=== PATIENT | male | born 1940 | race Caucasian/White ===

== ENCOUNTER 2024-11-26 15:31 | Inpatient (IN) ==
--- NOTE | 2024-11-26 15:42 | ED Triage Note ---
Date of Service November 26, 2024 Provider in Triage Author: Chano Watkins History of Present Illness This patient was briefly evaluated while in triage. An abbreviated physical exam was performed. This patient is a 84-year-old Male who presents to the ED with his daughter for evaluation of discoloration. The patient followed up with his PCP, who ordered lab work and imaging performed. They stated that he had an abnormal ultrasound today, concerning for biliary sludge. She reports that he had diarrhea last night, and is usually constipated. Patient is a [facility] patient. The patient currently denies any pain. Physical Exam CONSTITUTIONAL: Healthy and well nourished. Patient does not appear in any acute distress. Patient has some mild jaundice. HEENT: Normocephalic, atraumatic. Pupils equal, round and reactive. Conjunctive very pale. RESPIRATORY: Clear to auscultation bilaterally with no wheezing, crackles, rhonchi or stridor. CARDIOVASCULAR: Regular rate and rhythm with no murmurs, rubs or gallops. GASTROINTESTINAL: Bowel sounds present in all quadrants. Patient does not have any abdominal tenderness to palpation. MUSCULOSKELETAL: Full range of motion of all joints without discomfort. INTEGUMENTARY: No rash or other significant dermatologic conditions noted. HEMATOLOGIC: No ecchymosis or petechiae. PSYCHIATRIC: Positive affect. Initial orders for labs and / or imaging were placed and patient was placed in the waiting area until a bed is available. Please see further documentation for the full ED course.
[2024-11-26 16:18] LABS: Basophils # (auto) 0.09 K/uL (0.00-0.20); Basophils % (auto) 1.3 %; Eosinophils # (auto) 0.27 K/uL (0.00-0.50); Eosinophils % (auto) 3.9 %; Hematocrit (blood only) 22.4 % (42.0-52.0); Hemoglobin 7.6 g/dl (14.0-18.0); Immature Granulocytes # (auto) 0.04 K/uL (0.01-0.20); Immature Granulocytes % (auto) 0.6 %; Lymphocytes # (auto) 1.29 K/uL (1.20-3.40); Lymphocytes % (auto) 18.7 %; Mean Corpuscular Hemoglobin 30.2 pg (25.0-34.0); Mean Corpuscular Hgb Conc 33.9 g/dL (32.0-36.0); Mean Corpuscular Volume 88.9 fL (80.0-100.0); Mean Platelet Volume 11.4 fL (9.4-12.4); Monocytes % (auto) 10.2 %; Neutrophils % (auto) 65.3 %; Platelet Count 310 K/uL (130-400); RDW Coefficient of Variation 20.7 % (11.5-14.5); RDW Standard Deviation 65.7 fL (36.4-46.3); Red Blood Count 2.52 M/uL (4.70-6.10); White Blood Count 6.89 K/ul (4.8-10.8)
[2024-11-26 16:34] LABS: Alanine Aminotransferase 104 U/L (7-52); Albumin Globulin Ratio 0.6 (0.9-2); Albumin Level 2.8 gm/dl (3.4-5.0); Alkaline Phosphatase 1100 U/L (34-104); Anion Gap 9 (3-11); Aspartate Aminotransferase 348 U/L (13-39); Bilirubin,Total 10.6 mg/dl (0.2-1.0); Blood Urea Nitrogen 19 mg/dl (6-23); Calcium 7.7 mg/dl (8.6-10.3); Carbon Dioxide 20 mmol/L (21-32); Chloride 107 mmol/L (98-107); Globulin 4.8 gm/dl (2.5-4.0); Glucose 116 mg/dl (70-99(Fasting)); Lipase 55 U/L (11-82); Potassium 3.8 mmol/L (3.5-5.1); Sodium 136 mmol/L (136-145); Total Protein 7.6 gm/dl (6.0-8.3)
[2024-11-26 16:40] LABS: Anisocytosis Present; Target Cells 2+; Troponin I High Sensitivity 22.8 pg/ml (0-20)
[2024-11-26 16:42] LABS: INR 3.3 (0.9-1.1); Prothrombin Time 32.3 Seconds (9.0-12.0)
--- NOTE | 2024-11-26 16:42 | XRay Report ---
EXAM: Radiograph of the Chest 1 View INDICATION: Abdominal pain. TECHNIQUE: Frontal view of the chest. COMPARISON: No relevant prior studies available. FINDINGS: Lungs and pleural spaces: No consolidation or pulmonary edema. No pleural effusion or pneumothorax. Heart: Shape and configuration within normal limits allowing for technique. Mediastinum: Normal contour. Bones/joints: Degenerative changes noted throughout the spine and both shoulders. No lytic or blastic lesions noted. Soft tissues: No abnormality noted. No radiopaque foreign body noted. Upper abdomen: No abnormality noted. IMPRESSION: No acute cardiopulmonary disease. ACT 112: Negative or not required by law. Electronically signed by Alejandra Montesinos 11-26-2024 4:41 PM
[2024-11-26 16:54] LABS: Bilirubin Direct 6.7 mg/dl (0-0.2)
--- NOTE | 2024-11-26 17:12 | Electrocardiogram Report ---
Test Reason : Blood Pressure : */* mmHG Vent. Rate : 93 BPM Atrial Rate : * BPM P-R Int : * ms QRS Dur : 90 ms QT Int : 368 ms P-R-T Axes : * -15 80 degrees QTcB Int : 457 ms Atrial fibrillation Abnormal ECG Confirmed by Inocencio Colon ([id number]) on 11/26/2024 5:12:36 PM Referred By: Confirmed By: Inocencio Colon
[2024-11-26] MEDS: OPTIRAY 320 100ml IV ONE (17:44)
[2024-11-26] MEDS: SODIUM CHLORIDE 0.9% 1,000 ML IV ONE (17:56)
--- NOTE | 2024-11-26 18:08 | CT Scan Report ---
EXAM: CT Abdomen and Pelvis With Intravenous Contrast INDICATION: Jaundice. TECHNIQUE: Axial computed tomography images of the abdomen and pelvis with intravenous contrast. Sagittal and coronal reformatted images were created and reviewed. This CT exam was performed using one or more of the following dose reduction techniques: automated exposure control, adjustment of the mA and/or kV according to patient size, and/or use of iterative reconstruction technique. CONTRAST: 90ml of Optiray 320 was administered intravenously. COMPARISON: No relevant prior studies available. FINDINGS: Limitations: None. Lung bases: No abnormality noted. Pleural space: No visualized pleural effusion or pneumothorax. Heart: Mild cardiomegaly. Aortic valve prosthesis noted. Dense coronary calcification noted. No pericardial effusion. Mediastinum: No abnormality noted. ABDOMEN: Liver: Heterogeneous hypodensity with moderate intrahepatic biliary dilatation. No hepatic mass. Gallbladder and bile ducts: Small stones in the gallbladder. Contrast noted in the common hepatic duct. The common bile duct is slightly increased in density but normal size. No calcified stones. Pancreas: Homogeneous enhancement. No mass, inflammation or ductal dilation. Spleen: No significant abnormality noted. Adrenals: No significant abnormality noted. Kidneys and ureters: Simple bilateral renal cysts noted. No follow-up necessary. No stones or hydronephrosis. 3 x 6 mm stone noted at the right UPJ. No hydronephrosis. Stomach and bowel: Colonic diverticulosis without diverticulitis. No intestinal thickening or obstruction. PELVIS: Appendix: Well seen and appears normal. Bladder: There are stones in the urinary bladder the largest measuring 3.3 cm diameter. The bladder is mildly thickened and inflamed. Reproductive: No abnormalities noted. ABDOMEN and PELVIS: Intraperitoneal space: No free air. No significant fluid collection. Bones/joints: The bones are demineralized. There is acute severe compression fracture of L1 with height loss and retropulsion. Severe canal stenosis present. Diffuse degenerative changes present with grade 2 lumbosacral anterolisthesis. Soft tissues: No significant abnormality noted. Vasculature: Atherosclerotic calcification of the aorta and branches. No aneurysm. Lymph nodes: There is a heterogeneous peripherally calcified 3.5 x 3.2 x 6.0 cm long mass along the inferior margin of the atrophic left rectus muscle anterior to the left external iliac artery. IMPRESSION: 1. Common bile duct is not dilated but appears dense with cutoff at the hepatic duct level suggesting common bile duct obstruction. There is moderate intrahepatic biliary dilatation. 2. Cholelithiasis. 3. There is an irregular mass exophytic from or abutting the inferior aspect of the atrophic left rectus muscle situated anterior to the left external iliac artery. Diagnostic considerations include neoplastic mass or metastatic lymph node. Conceivably, an old rectus sheath hematoma could have this appearance. ACT 112: Negative or not required by law. Electronically signed by Alejandra Montesinos 11-26-2024 6:07 PM
[2024-11-26 18:32] LABS: Troponin I High Sensitivity 23.8 pg/ml (0-20)
[2024-11-26 19:30] LABS: Appearance Urine Cloudy (Clear); Bacteria Urine Automated None Seen (None Seen); Bilirubin Urine 3+ (Negative); Blood Urine 3+ (Negative); Cast Urine Automated 0-2 /lpf (0-2); Color Urine Dark Yellow; Glucose Urine UA Negative (Negative); Ketones Urine Negative (Negative); Leukocyte Esterase Urine Trace (Negative); Nitrite Urine Negative (Negative); Protein Urine Trace (Negative); RBC Urine Automated >20 /hpf (0-2); Specific Gravity Urine 1.037 (1.000-1.030); Urobilinogen Urine Negative (Negative); WBC Urine Automated 0-5 /hpf (0-5); pH Urine 5.5 (4.5-7.5)
--- NOTE | 2024-11-26 20:16 | History & Physical Report ---
Date of Service November 26, 2024 Assessment & Plan (1) Hypotension: Plan: Multifactorial: Hypovolemia from obstructive jaundice from cholelithiasis, possible mass lesion, UGIB secondary to hepatic coagulopathy/Xarelto Rx Rapid A-fib Acute on chronic anemia secondary to UGIB hx CAD status post coronary endarterectomy severe sp bioprosthetic AVR hyperlipidemia on statin Rx DM2 diet-controlled, well-controlled as of recent hemoglobin A1c of 6.2 last year Dementia as per records, patient mentating well PCU IVF Decrease maintenance beta-brie dose, digoxin for uncontrolled A-fib IV PPI IV vitamin K for coagulopathy secondary to liver disease Hold Xarelto and aspirin for now given GI bleed Transfuse PRBC to maintain hemoglobin of at least 8 Hold statin given abnormal LFTs C transfer once bed available (Patient kindly accepted for transfer by Dr. Santos of hospitalist service. Transfer paperwork already completed at the ER.) N.p.o. after midnight in anticipation of procedure DVT prophylaxis. SCDs re: GI bleed Full code Patient daughter requesting updates providers. Ms. Aileen Mcdonnell, contact #[phone]. Text document was generated using [employer] voice recognition software. It may contain grammatical or spelling errors. Kindly contact undersigned for clarification of any documentation item in question. History of Present Illness Chief Complaint: Abnormal labs/ultrasound Primary Care Provider: Cecil Tai MD History obtained from patient and records. Medical history significant for CAD status post coronary endarterectomy, A-fib on Xarelto, severe sp bioprosthetic AVR, hypertension, hyperlipidemia, DM2 diet-controlled, chronic anemia (baseline hemoglobin of 12), dementia. Patient skin color noted to be off by family the last few weeks. Somewhat yellow to orange. No abdominal pain, no fever, no chills. Poor appetite. Denies headache, chest pain, SOB. Loose stools nonbloody as per patient. PCP requested outpatient blood work. Abnormal labs noted. Hemoglobin 9.1, ALT 125, AST 273, alk phos 11/04/2004, total bilirubin 7.3 Liver ultrasound showed Intraluminal gallbladder sludge a portion of which is suspect to be tumefactive. There is proximal intrahepatic biliary dilatation and extrahepatic biliary dilatation. Consider follow-up MRCP imaging if clinically appropriate. Patient directed to ER for evaluation. Lowest SBP of 80s documented at the ER. Patient accepted for transfer by [facility] hospitalist service pending bed availability. Medical History as above Surgical History : Bioprosthetic AVR/bypass, coronary endarterectomy, cataract surgery, hernia surgery Family History : Esophageal cancer Personal/Social history : Non-smoker, no EtOH intake, retired hair stylist Allergies Allergy/AdvReac Type Severity Reaction Status Date / Time iodine Allergy Mild Blister - Verified 11/26/24 19:12 REMOTE HX Penicillins Allergy Unknown Unknown - Verified 11/26/24 19:12 REMOTE HX Home Medications Medication Instructions Recorded Confirmed Type rivaroxaban 20 mg tablet 20 mg PO DAILY #30 tabs 07/22/19 11/26/24 History atorvastatin 10 mg tablet 10 mg PO QPM #90 tabs 07/20/24 11/26/24 Rx metoprolol succinate 50 mg 50 mg PO BID #180 tabs 08/11/24 11/26/24 Rx tablet,extended release 24 hr aspirin 81 mg tablet,delayed 81 mg PO DAILY 11/26/24 11/26/24 History release Past Med/Surg History Problem List (Updated 11/27/24 @ 00:54 by Marlys Haider MD) Abnormal transaminases (Acute) Malignant obstructive jaundice (Acute) Common bile duct (CBD) obstruction (Acute) Hypotension Chronic anticoagulation Atrial fibrillation (Acute) UTI (urinary tract infection) History of aortic valve replacement 11 YR AGO CAD (coronary artery disease) History of coronary artery bypass graft Encounter for pre-operative examination Medical History Atrial fibrillation Arthritis Borderline diabetes Chronic cough Hyperlipidemia HTN (hypertension) Surgical History History of cataract surgery History of hernia surgery Family History Brother Family history of esophageal cancer Brother Family history of esophageal cancer Social History Smoking Status: Never smoker Do You Dip or Chew Tobacco: No; Hx Alcohol Use: No Hx Substance Use: No Preferred Language: Greek Communication Ability: Effective Master [place] Required: No Beliefs That Will Affect Care: None Current Living Situation: Family Current Living Situation Comment: , GRANDAUGHTRISH AND SON Other Information That Helps Us Care for You: No Feels Safe at Home: Yes Safety Concerns: Feels Safe At This Time Assistive Devices: Walker Review of Systems Review of Systems: As per HPI, all other systems reviewed and negative Physical Exam Physical Exam: GENERAL: Comfortable, pleasant, slightly hard of hearing, no respiratory distress SKIN: Jaundiced, warm HEENT: Pale palpebral conjunctivae, no ptosis, dry buccal mucosa NECK : Supple, no tenderness CHEST : CTA, no tenderness HEART : Irregular, no obvious murmurs ABDOMEN: Some distention, nontender RECTAL : Intact sphincter, dark stool (FOBT positive) EXTREMITIES : No LE swelling/tenderness, no other conspicuous deformities noted NEUROLOGIC : Coherent, no facial asymmetry, slightly hard of hearing, no other gross focality Results & Data Results & Data Vital Signs (Past 12 Hours) Vital Signs Temp Pulse Pulse Resp BP BP Pulse Ox 11/26/24 19:00 112 H 18 120/75 100 11/26/24 17:05 78 16 96 11/26/24 17:05 91 H 16 87/66 L 97 11/26/24 15:37 36.9 C 98 H 18 105/70 98 O2 Del Method 11/26/24 19:00 Room Air 11/26/24 17:05 Room Air 11/26/24 17:05 Room Air 11/26/24 15:37 Room Air Laboratory Results Laboratory Results WBC 6.89 K/ul (4.8-10.8) 11/26/24 15:56 RBC 2.52 M/uL (4.70-6.10) L 11/26/24 15:56 Hgb 7.6 g/dl (14.0-18.0) L 11/26/24 15:56 Hct 22.4 % (42.0-52.0) L 11/26/24 15:56 MCV 88.9 fL (80.0-100.0) 11/26/24 15:56 MCH 30.2 pg (25.0-34.0) 11/26/24 15:56 MCHC 33.9 g/dL (32.0-36.0) 11/26/24 15:56 RDW Std Deviation 65.7 fL (36.4-46.3) H 11/26/24 15:56 RDW Coeff of Colt 20.7 % (11.5-14.5) H 11/26/24 15:56 Plt Count 310 K/uL (130-400) 11/26/24 15:56 MPV 11.4 fL (9.4-12.4) 11/26/24 15:56 Immature Gran % (Auto) 0.6 % 11/26/24 15:56 Neut % (Auto) 65.3 % 11/26/24 15:56 Lymph % (Auto) 18.7 % 11/26/24 15:56 Chambers % (Auto) 10.2 % 11/26/24 15:56 Eos % (Auto) 3.9 % 11/26/24 15:56 Baso % (Auto) 1.3 % 11/26/24 15:56 Neut # (Auto) 4.50 K/uL (1.40-6.50) 11/26/24 15:56 Lymph # (Auto) 1.29 K/uL (1.20-3.40) 11/26/24 15:56 Chambers # (Auto) 0.70 K/uL (0.11-0.59) H 11/26/24 15:56 Eos # (Auto) 0.27 K/uL (0.00-0.50) 11/26/24 15:56 Baso # (Auto) 0.09 K/uL (0.00-0.20) 11/26/24 15:56 Immature Gran # (Auto) 0.04 K/uL (0.01-0.20) 11/26/24 15:56 Anisocytosis Present 11/26/24 15:56 Target Cells 2+ 11/26/24 15:56 PT 32.3 Seconds (9.0-12.0) H 11/26/24 15:56 INR 3.3 (0.9-1.1) H 11/26/24 15:56 Sodium 136 mmol/L (136-145) 11/26/24 15:56 Potassium 3.8 mmol/L (3.5-5.1) 11/26/24 15:56 Chloride 107 mmol/L (98-107) 11/26/24 15:56 Carbon Dioxide 20 mmol/L (21-32) L 11/26/24 15:56 Anion Gap 9 (3-11) 11/26/24 15:56 BUN 19 mg/dl (6-23) 11/26/24 15:56 Creatinine 1.19 mg/dl (0.6-1.4) 11/26/24 15:56 Est Cr Clr Drug Dosing Not Reportable 11/26/24 15:56 eGFR 59.86 11/26/24 15:56 BUN/Creatinine Ratio 16.0 (10-20) 11/26/24 15:56 Glucose 116 mg/dl (70-99(Fasting)) H 11/26/24 15:56 Calcium 7.7 mg/dl (8.6-10.3) L 11/26/24 15:56 Total Bilirubin 10.6 mg/dl (0.2-1.0) H 11/26/24 15:56 Direct Bilirubin 6.7 mg/dl (0-0.2) H 11/26/24 15:56 AST 348 U/L (13-39) H 11/26/24 15:56 ALT 104 U/L (7-52) H 11/26/24 15:56 Alkaline Phosphatase 1100 U/L (34-104) H 11/26/24 15:56 Troponin I High Sens 23.8 pg/ml (0-20) H 11/26/24 17:57 Total Protein 7.6 gm/dl (6.0-8.3) 11/26/24 15:56 Albumin 2.8 gm/dl (3.4-5.0) L 11/26/24 15:56 Globulin 4.8 gm/dl (2.5-4.0) H 11/26/24 15:56 Albumin/Globulin Ratio 0.6 (0.9-2) L 11/26/24 15:56 Lipase 55 U/L (11-82) 11/26/24 15:56 Urine Color Dark Yellow 11/26/24 19:15 Urine Appearance Cloudy (Clear) A 11/26/24 19:15 Urine pH 5.5 (4.5-7.5) 11/26/24 19:15 Ur Specific [place]crombie 1.037 (1.000-1.030) H 11/26/24 19:15 Urine Protein Trace (Negative) H 11/26/24 19:15 Urine Glucose (UA) Negative (Negative) 11/26/24 19:15 Urine Ketones Negative (Negative) 11/26/24 19:15 Urine Blood 3+ (Negative) H 11/26/24 19:15 Urine Nitrite Negative (Negative) 11/26/24 19:15 Urine Bilirubin 3+ (Negative) H 11/26/24 19:15 Urine Urobilinogen Negative (Negative) 11/26/24 19:15 Ur Leukocyte Esterase Trace (Negative) H 11/26/24 19:15 Urine WBC (Auto) 0-5 /hpf (0-5) 11/26/24 19:15 Urine RBC (Auto) >20 /hpf (0-2) H 11/26/24 19:15 U Hyaline Cast (Auto) 0-2 /lpf (0-2) 11/26/24 19:15 U Epithel Cells (Auto) 6-10 /hpf (0-2) H 11/26/24 19:15 Urine Bacteria (Auto) None Seen (None Seen) 11/26/24 19:15 Impressions Chest X-Ray 11/26/24 15:45 EXAM: Radiograph of the Chest 1 View INDICATION: Abdominal pain. TECHNIQUE: Frontal view of the chest. COMPARISON: No relevant prior studies available. FINDINGS: Lungs and pleural spaces: No consolidation or pulmonary edema. No pleural effusion or pneumothorax. Heart: Shape and configuration within normal limits allowing for technique. Mediastinum: Normal contour. Bones/joints: Degenerative changes noted throughout the spine and both shoulders. No lytic or blastic lesions noted. Soft tissues: No abnormality noted. No radiopaque foreign body noted. Upper abdomen: No abnormality noted. IMPRESSION: No acute cardiopulmonary disease. ACT 112: Negative or not required by law. Electronically signed by Alejandra Montesinos 11-26-2024 4:41 PM Abdomen/Pelvis CT 11/26/24 17:12 EXAM: CT Abdomen and Pelvis With Intravenous Contrast INDICATION: Jaundice. TECHNIQUE: Axial computed tomography images of the abdomen and pelvis with intravenous contrast. Sagittal and coronal reformatted images were created and reviewed. This CT exam was performed using one or more of the following dose reduction techniques: automated exposure control, adjustment of the mA and/or kV according to patient size, and/or use of iterative reconstruction technique. CONTRAST: 90ml of Optiray 320 was administered intravenously. COMPARISON: No relevant prior studies available. FINDINGS: Limitations: None. Lung bases: No abnormality noted. Pleural space: No visualized pleural effusion or pneumothorax. Heart: Mild cardiomegaly. Aortic valve prosthesis noted. Dense coronary calcification noted. No pericardial effusion. Mediastinum: No abnormality noted. ABDOMEN: Liver: Heterogeneous hypodensity with moderate intrahepatic biliary dilatation. No hepatic mass. Gallbladder and bile ducts: Small stones in the gallbladder. Contrast noted in the common hepatic duct. The common bile duct is slightly increased in density but normal size. No calcified stones. Pancreas: Homogeneous enhancement. No mass, inflammation or ductal dilation. Spleen: No significant abnormality noted. Adrenals: No significant abnormality noted. Kidneys and ureters: Simple bilateral renal cysts noted. No follow-up necessary. No stones or hydronephrosis. 3 x 6 mm stone noted at the right UPJ. No hydronephrosis. Stomach and bowel: Colonic diverticulosis without diverticulitis. No intestinal thickening or obstruction. PELVIS: Appendix: Well seen and appears normal. Bladder: There are stones in the urinary bladder the largest measuring 3.3 cm diameter. The bladder is mildly thickened and inflamed. Reproductive: No abnormalities noted. ABDOMEN and PELVIS: Intraperitoneal space: No free air. No significant fluid collection. Bones/joints: The bones are demineralized. There is acute severe compression fracture of L1 with height loss and retropulsion. Severe canal stenosis present. Diffuse degenerative changes present with grade 2 lumbosacral anterolisthesis. Soft tissues: No significant abnormality noted. Vasculature: Atherosclerotic calcification of the aorta and branches. No aneurysm. Lymph nodes: There is a heterogeneous peripherally calcified 3.5 x 3.2 x 6.0 cm long mass along the inferior margin of the atrophic left rectus muscle anterior to the left external iliac artery. IMPRESSION: 1. Common bile duct is not dilated but appears dense with cutoff at the hepatic duct level suggesting common bile duct obstruction. There is moderate intrahepatic biliary dilatation. 2. Cholelithiasis. 3. There is an irregular mass exophytic from or abutting the inferior aspect of the atrophic left rectus muscle situated anterior to the left external iliac artery. Diagnostic considerations include neoplastic mass or metastatic lymph node. Conceivably, an old rectus sheath hematoma could have this appearance. ACT 112: Negative or not required by law. Electronically signed by Alejandra Montesinos 11-26-2024 6:07 PM Diagnostic Findings EKG as per my interpretation :Rate 90, A-fib, normal axis, T wave flattening lateral leads
--- NOTE | 2024-11-26 20:16 | Emergency Department Note ---
Impression & Plan Common bile duct (CBD) obstruction, Atrial fibrillation, Malignant obstructive jaundice, Abnormal transaminases ED Provider Note NAME: SUE PETERS AGE: 84 SEX: M : 1940 ARRIVES VIA: Walk-In INFORMANT: Patient, ED PROVIDER(S): Marlys Haider MD CHIEF COMPLAINT: Jaundice HPI: This is an 84-year-old male presented for jaundice. Patient with the daughter states that he has been becoming more yellow over the course of the last 1 month. He has had some weight loss, possibly 30 pounds in the past 1 to 2 months. He was seen by his outpatient physician and ordered for blood work. They noted that he was jaundiced. Ultrasound also performed today and is advised to the ER after this. Reports some diarrhea last night. Otherwise no nausea or vomiting. No pain with this. No pain in the belly. The daughter states that he has been sleeping more often. Otherwise no chest pain or shortness of breath, no fevers ROS: See above HPI for pertinent positives & negatives. A total of 10 systems reviewed and were otherwise negative. PAST MEDICAL HISTORY: See Below PAST SURGICAL HISTORY: See Below FAMILY HISTORY: See Below SOCIAL HISTORY: See Below HOME MEDICATIONS: See Below ALLERGIES: See Below VITALS: See Below PHYSICAL EXAMINATION: General: resting comfortably in no acute distress Head: Normocephalic and atraumatic Eyes: Normal inspection, extraocular muscles intact, scleral icterus Ear, nose, throat: Normal external exam Neck: Normal range of motion Respiratory: lungs clear to auscultation bilaterally Cardiovascular: Regular rate/rhythm, no murmur GI: soft, nontender, no guarding or rebound Extremities: nontender, moves all extremities Neuro: The patient awake and alert, appropriately conversive, no focal deficits, symmetric faces Skin: Warm jaundiced MEDICAL DECISION MAKING: This is a an 84-year male present for jaundice. Patient is currently jaundice at this time with fairly yellow pigmented skin. He has clear icterus. With patient's weight loss, fatigue, and painless jaundice, consider possible obstructive pathology such as cancer. Must consider cholecystitis, cholangitis, choledocholithiasis. -Blood work significant abnormal. Patient is anemic to 7.3. Otherwise no leukocytosis. INR 3.3. Patient is not on Coumadin or warfarin but he is on Xarelto. Electrolytes within normal limits Aside from slight hypocalcemia. Creatinine stable. -Chest Xray independently interpreted by me showing no pneumothorax, focal opacity, or pleural effusions. Patient significant normalities in his LFTs. He has transaminitis 348/104, AST/ALT respectively. Total bilirubin 10.6, direct bilirubin 6.7. Alk phos 1100 -Ultrasound in the outpatient setting does reveal intraluminal gallbladder sludge suspicious of tumefactive. Otherwise there is proximal intrahepatic biliary dilation and extrapedicular dilation. -CT of the abdomen/pelvis to be ordered assessing for any common bile duct dilation, stone, pancreatic mass -CT does reveal the common bile duct is not dilated. There is suggestion of common bile duct obstruction with moderate intrahepatic bile dilation. There is cholelithiasis. Otherwise there is an irregular mass exophytic from or abutting the inferior aspect of the atrophic left rectus muscle. This could be a metastatic lymph node versus neoplastic mass. -Discussed care with Dr. Tim, GI physician who states patient will require transfer as we do not do metallic stent and there is no ERCP coverage -Discussed care with [facility] in [place], discussed with hospitalist physician for admission. Accepted the patient. There is no current bed, will likely be morning or afternoon for bed -Patient care discussed with Dr. Earl for hospitalist consultation while patient awaits transfer -Family updated at bedside and acceptable for transfer Differential diagnosis: Cholelithiasis, cholangitis, choledocholithiasis, pancreatic cancer, obstructive jaundice, liver failure Independent History obtained from: Daughter Diagnostics interpreted by me: ECG: ECG independently interpreted by me with atrial fibrillation with a rate of 93, normal QRS, normal QTc, no ST segment elevations consistent with STEMI criteria Cardiac Monitoring: An order was placed for continuous cardiac monitoring. The monitor shows a rate of 93 with sinus rhythm. Critical Care Note: I have personally spent 45 minutes of critical care time in the direct management of this patient. This includes bedside care, interpretation of diagnostic studies, and testing, discussion with consultants, patient, and family members, and other required patient management activities. This 45 minutes is in excess of all separately billable procedures. Past Med/Surg History Problem List (Updated 11/27/24 @ 00:54 by Marlys Haider MD) Abnormal transaminases (Acute) Malignant obstructive jaundice (Acute) Common bile duct (CBD) obstruction (Acute) Hypotension Chronic anticoagulation Atrial fibrillation (Acute) UTI (urinary tract infection) History of aortic valve replacement 11 YR AGO CAD (coronary artery disease) History of coronary artery bypass graft Encounter for pre-operative examination Medical History Atrial fibrillation Arthritis Borderline diabetes Chronic cough Hyperlipidemia HTN (hypertension) Surgical History History of cataract surgery History of hernia surgery Family History Brother Family history of esophageal cancer Brother Family history of esophageal cancer Social History Smoking Status: Never smoker Do You Dip or Chew Tobacco: No; Hx Alcohol Use: No Hx Substance Use: No Preferred Language: Mauritian Communication Ability: Effective Hot Tar Roofer Required: No Beliefs That Will Affect Care: None Current Living Situation: Family Current Living Situation Comment: , GRANDAUGHTER AND SON Other Information That Helps Us Care for You: No Feels Safe at Home: Yes Safety Concerns: Feels Safe At This Time Assistive Devices: Walker Allergies Allergies Allergy/AdvReac Type Severity Reaction Status Date / Time iodine Allergy Mild Blister - Verified 11/26/24 19:12 REMOTE HX Penicillins Allergy Unknown Unknown - Verified 11/26/24 19:12 REMOTE HX Home Meds Home Medications Medication Instructions Recorded Confirmed rivaroxaban 20 mg tablet 20 mg PO DAILY #30 tabs 07/22/19 11/26/24 aspirin 81 mg tablet,delayed 81 mg PO DAILY 11/26/24 11/26/24 release Previous Rx's Medication Instructions Recorded atorvastatin 10 mg tablet 10 mg PO QPM #90 tabs 07/20/24 metoprolol succinate 50 mg 50 mg PO BID #180 tabs 08/11/24 tablet,extended release 24 hr Results & Data (ED) Vital Signs Vital Signs - 24 hr 11/26/24 15:37 11/26/24 17:05 11/26/24 17:05 Temperature 36.9 C Temperature Source Oral Pulse Rate 98 H 78 Pulse Rate [Finger] 91 H Pulse Rhythm [Finger] Regular Pulse Strength [Finger] Normal Respiratory Rate 18 16 16 Respiratory Effort / Characteristics Non-Labored Spontaneous Respiratory Depth Normal Respiratory Pattern Blood Pressure 105/70 Blood Pressure [Right Arm] 87/66 L Blood Pressure Mean 81 Blood Pressure Mean [Right Arm] 73 Blood Pressure Position [Right Arm] Lying Pulse Oximetry 98 97 96 Oxygen Delivery Method Room Air Room Air Room Air Sepsis New/Unexplained Change in Mental Status No Sepsis Action Taken by Nursing No Action Required 11/26/24 19:00 11/26/24 20:22 Temperature Temperature Source Pulse Rate 83 Pulse Rate [Finger] 112 H Pulse Rhythm [Finger] Regular Pulse Strength [Finger] Normal Respiratory Rate 18 Respiratory Effort / Characteristics Non-Labored Spontaneous Respiratory Depth Normal Respiratory Pattern Regular Blood Pressure Blood Pressure [Right Arm] 120/75 Blood Pressure Mean Blood Pressure Mean [Right Arm] 90 Blood Pressure Position [Right Arm] Sitting Pulse Oximetry 100 Oxygen Delivery Method Room Air Sepsis New/Unexplained Change in Mental Status Sepsis Action Taken by Nursing Laboratory Data 11/26/24 21:05 11/26/24 15:56 Lab Results 11/26/24 11/26/24 11/26/24 Range/Units 15:56 17:57 19:15 WBC 6.89 (4.8-10.8) K/ul RBC 2.52 L (4.70-6.10) M/uL Hgb 7.6 L (14.0-18.0) g/dl Hct 22.4 L (42.0-52.0) % MCV 88.9 (80.0-100.0) fL MCH 30.2 (25.0-34.0) pg MCHC 33.9 (32.0-36.0) g/dL RDW Std Deviation 65.7 H (36.4-46.3) fL RDW Coeff of [place] 20.7 H (11.5-14.5) % Plt Count 310 (130-400) K/uL MPV 11.4 (9.4-12.4) fL Immature Gran % (Auto) 0.6 % Neut % (Auto) 65.3 % Lymph % (Auto) 18.7 % [place] % (Auto) 10.2 % Eos % (Auto) 3.9 % Baso % (Auto) 1.3 % Neut # (Auto) 4.50 (1.40-6.50) K/uL Lymph # (Auto) 1.29 (1.20-3.40) K/uL [place] # (Auto) 0.70 H (0.11-0.59) K/uL Eos # (Auto) 0.27 (0.00-0.50) K/uL Baso # (Auto) 0.09 (0.00-0.20) K/uL Immature Gran # (Auto) 0.04 (0.01-0.20) K/uL Anisocytosis Present Target Cells 2+ PT 32.3 H (9.0-12.0) Seconds INR 3.3 H (0.9-1.1) Sodium 136 (136-145) mmol/L Potassium 3.8 (3.5-5.1) mmol/L Chloride 107 (98-107) mmol/L Carbon Dioxide 20 L (21-32) mmol/L Anion Gap 9 (3-11) BUN 19 (6-23) mg/dl Creatinine 1.19 (0.6-1.4) mg/dl Est Cr Clr Drug Dosing Not Reportable eGFR 59.86 BUN/Creatinine Ratio 16.0 (10-20) Glucose 116 H (70-99(Fasting)) mg/dl Calcium 7.7 L (8.6-10.3) mg/dl Magnesium 1.6 L (1.7-2.4) mg/dl Total Bilirubin 10.6 H (0.2-1.0) mg/dl Direct Bilirubin 6.7 H (0-0.2) mg/dl AST 348 H (13-39) U/L ALT 104 H (7-52) U/L Alkaline Phosphatase 1100 H (34-104) U/L Troponin I High Sens 22.8 H 23.8 H (0-20) pg/ml Total Protein 7.6 (6.0-8.3) gm/dl Albumin 2.8 L (3.4-5.0) gm/dl Globulin 4.8 H (2.5-4.0) gm/dl Albumin/Globulin Ratio 0.6 L (0.9-2) Lipase 55 (11-82) U/L TSH 1.806 (0.300-4.500) uIu/ml Urine Color Dark Yellow Urine Appearance Cloudy A (Clear) Urine pH 5.5 (4.5-7.5) Ur Specific [place] 1.037 H (1.000-1.030) Urine Protein Trace H (Negative) Urine Glucose (UA) Negative (Negative) Urine Ketones Negative (Negative) Urine Blood 3+ H (Negative) Urine Nitrite Negative (Negative) Urine Bilirubin 3+ H (Negative) Urine Urobilinogen Negative (Negative) Ur Leukocyte Esterase Trace H (Negative) Urine WBC (Auto) 0-5 (0-5) /hpf Urine RBC (Auto) >20 H (0-2) /hpf U Hyaline Cast (Auto) 0-2 (0-2) /lpf U Epithel Cells (Auto) 6-10 H (0-2) /hpf Urine Bacteria (Auto) None Seen (None Seen) Administered Medications Potassium Chloride/Sodium Chloride (Normal Saline W/20 Meq Kcl) 20 meq in 1,000 mls @ 75 mls/hr IV .[id number] ONE Stop: 11/27/24 09:34 Last Admin: 11/26/24 20:39 Dose: 75 mls/hr Documented By: JOSE Discontinued Medications Sodium Chloride (Nss) 1,000 mls @ 999 mls/hr IV .[id number] ONE Stop: 11/26/24 18:12 Last Infusion: 11/26/24 19:18 Dose: Infused Documented By: Admin: 11/26/24 17:56 Dose: 999 mls/hr Documented By: TANNER Phytonadione 10 mg/ Dextrose 51 mls @ 102 mls/hr IV ONE ONE Stop: 11/26/24 20:44 Last Infusion: 11/26/24 21:29 Dose: Infused Documented By: Admin: 11/26/24 20:39 Dose: 102 mls/hr Documented By: JOSE Pantoprazole Sodium 80 mg/ (Dextrose) 120 mls @ 480 mls/hr IV ONE STA Stop: 11/26/24 21:20 Last Infusion: 11/26/24 22:59 Dose: Infused Documented By: Admin: 11/26/24 22:38 Dose: 480 mls/hr Documented By: JOSE Magnesium Sulfate/Dextrose (Magnesium Sulfate / D5w) 1 gm in 100 mls @ 50 mls/hr IV ONE ONE Stop: 11/26/24 23:29 Last Infusion: 11/27/24 00:07 Dose: Infused Documented By: Admin: 11/26/24 21:29 Dose: 50 mls/hr Documented By: KAF Ioversol (Optiray 320 100ml) 90 ml IV ONCE ONE Stop: 11/26/24 17:45 Last Admin: 11/26/24 17:44 Dose: 90 ml Documented By: GRACE Metoprolol Succinate (Metoprolol Succ 50mg Ext Rel Tab) 50 mg PO NOW STA Stop: 11/26/24 20:08 Last Admin: 11/26/24 20:48 Dose: Not Given Documented By: JOSE Metoprolol Succinate (Metoprolol Succ 25mg Ext Rel Tab) 25 mg PO NOW STA Stop: 11/26/24 23:55 Last Admin: 11/27/24 00:10 Dose: 25 mg Documented By: MIKI Imaging Data Radiologist's Impression: Chest X-Ray 11/26/24 15:45 EXAM: Radiograph of the Chest 1 View INDICATION: Abdominal pain. TECHNIQUE: Frontal view of the chest. COMPARISON: No relevant prior studies available. FINDINGS: Lungs and pleural spaces: No consolidation or pulmonary edema. No pleural effusion or pneumothorax. Heart: Shape and configuration within normal limits allowing for technique. Mediastinum: Normal contour. Bones/joints: Degenerative changes noted throughout the spine and both shoulders. No lytic or blastic lesions noted. Soft tissues: No abnormality noted. No radiopaque foreign body noted. Upper abdomen: No abnormality noted. IMPRESSION: No acute cardiopulmonary disease. ACT 112: Negative or not required by law. Electronically signed by Alejandra Montesinos 11-26-2024 4:41 PM Abdomen/Pelvis CT 11/26/24 17:12 EXAM: CT Abdomen and Pelvis With Intravenous Contrast INDICATION: Jaundice. TECHNIQUE: Axial computed tomography images of the abdomen and pelvis with intravenous contrast. Sagittal and coronal reformatted images were created and reviewed. This CT exam was performed using one or more of the following dose reduction techniques: automated exposure control, adjustment of the mA and/or kV according to patient size, and/or use of iterative reconstruction technique. CONTRAST: 90ml of Optiray 320 was administered intravenously. COMPARISON: No relevant prior studies available. FINDINGS: Limitations: None. Lung bases: No abnormality noted. Pleural space: No visualized pleural effusion or pneumothorax. Heart: Mild cardiomegaly. Aortic valve prosthesis noted. Dense coronary calcification noted. No pericardial effusion. Mediastinum: No abnormality noted. ABDOMEN: Liver: Heterogeneous hypodensity with moderate intrahepatic biliary dilatation. No hepatic mass. Gallbladder and bile ducts: Small stones in the gallbladder. Contrast noted in the common hepatic duct. The common bile duct is slightly increased in density but normal size. No calcified stones. Pancreas: Homogeneous enhancement. No mass, inflammation or ductal dilation. Spleen: No significant abnormality noted. Adrenals: No significant abnormality noted. Kidneys and ureters: Simple bilateral renal cysts noted. No follow-up necessary. No stones or hydronephrosis. 3 x 6 mm stone noted at the right UPJ. No hydronephrosis. Stomach and bowel: Colonic diverticulosis without diverticulitis. No intestinal thickening or obstruction. PELVIS: Appendix: Well seen and appears normal. Bladder: There are stones in the urinary bladder the largest measuring 3.3 cm diameter. The bladder is mildly thickened and inflamed. Reproductive: No abnormalities noted. ABDOMEN and PELVIS: Intraperitoneal space: No free air. No significant fluid collection. Bones/joints: The bones are demineralized. There is acute severe compression fracture of L1 with height loss and retropulsion. Severe canal stenosis present. Diffuse degenerative changes present with grade 2 lumbosacral anterolisthesis. Soft tissues: No significant abnormality noted. Vasculature: Atherosclerotic calcification of the aorta and branches. No aneurysm. Lymph nodes: There is a heterogeneous peripherally calcified 3.5 x 3.2 x 6.0 cm long mass along the inferior margin of the atrophic left rectus muscle anterior to the left external iliac artery. IMPRESSION: 1. Common bile duct is not dilated but appears dense with cutoff at the hepatic duct level suggesting common bile duct obstruction. There is moderate intrahepatic biliary dilatation. 2. Cholelithiasis. 3. There is an irregular mass exophytic from or abutting the inferior aspect of the atrophic left rectus muscle situated anterior to the left external iliac artery. Diagnostic considerations include neoplastic mass or metastatic lymph node. Conceivably, an old rectus sheath hematoma could have this appearance. ACT 112: Negative or not required by law. Electronically signed by Alejandra Montesinos 11-26-2024 6:07 PM Discharge Plan Visit Data Chief Complaint: Abnormal Labs/Diagnostic Testing Stated Complaint: ABN LABS ED Provider: Marlys Haider Discharge Problem: Common bile duct (CBD) obstruction, Atrial fibrillation, Malignant obstructive jaundice, Abnormal transaminases Patient Disposition: Admitted As Inpatient Discharge Instructions Interventions: ED Discharge Assessment Last Done: 11/26/24 21:48
[2024-11-26 20:21] LABS: Magnesium 1.6 mg/dl (1.7-2.4)
[2024-11-26] MEDS: PHYTONADIONE 10 MG in DEXTROSE 5% 50 ML IV ONE (20:39)
[2024-11-26] MEDS: NSS + 20MEQ KCL 20 MEQ/1,000 ML BAG IV ONE (20:39)
[2024-11-26] MEDS: METOPROLOL SUCC 50MG EXT REL TAB PO STA (20:48)
[2024-11-26 20:59] LABS: Thyroid Stimulating Hormone 1.806 uIu/ml (0.300-4.500)
[2024-11-26] MEDS ORDERED: ACETAMINOPHEN 500 MG TAB PO PRN (21:03)
[2024-11-26] MEDS ORDERED: traMADol HCL 50 MG TABLET PO PRN (21:05)
[2024-11-26] MEDS ORDERED: PROMETHAZINE 6.25 MG/50.25 ML BAG IV PRN (21:05)
[2024-11-26] MEDS: MAGNESIUM SULFATE / D5W 1 GM/100 ML BAG IV ONE (21:29)
[2024-11-26 21:50] LABS: Hemoglobin 7.3 g/dl (14.0-18.0)
[2024-11-26] MEDS ORDERED: SODIUM CHLORIDE 0.9% 50 ML IV PRN (21:56)
[2024-11-26] MEDS ORDERED: SODIUM CHLORIDE 0.9% 100 ML IV PRN (21:56)
[2024-11-26] MEDS ORDERED: GLUCAGON FOR INJ 1 MG VIAL SQ PRN (22:05)
[2024-11-26] MEDS ORDERED: DEXTROSE 50% 50 ML SYRINGE IV PRN (22:05)
[2024-11-26] MEDS ORDERED: GLUCOSE 40% GEL 15 GM TUBE PO PRN (22:05)
[2024-11-26] MEDS ORDERED: GLUCOSE 10 TAB/TUBE PO PRN (22:05)
[2024-11-26] MEDS: PANTOprazole 80 MG in DEXTROSE 5% 100 ML IV STA (22:17)
[2024-11-27] MEDS: METOPROLOL SUCC 25MG EXT REL TAB PO STA (00:10)
[2024-11-27] MEDS: MAGNESIUM SULFATE / D5W 1 GM/100 ML BAG IV ONE ×2 (02:36→21:26)
--- OUTSIDE RECORDS SUMMARY | 2024-11-27 03:12 | External Medical Summary | Summary of Care ---
Author Name Unknown Organization [facility] Address [address] [place] [address] Phone [phone] Care Team Providers Care Biomedical Repair Technician Name Role Phone Cecil Tai MD Primary Care Provider [phone] Reason for Visit * Reason Onset Date Comments Test Results 11/17/2024 Encounter Details Date Type Department Care Team (Late st Contact Info) Description 11/17/2024 Telephone [facility] [address] [place] [id number] Cecil Tai MD [address] [facility] [place] [id number] Test Results Allergies Active Allergy Reactions Criticality Noted Date Comments Iodine Rash Low 04/16/2023 Lisinopril Cough 04/03/2018 Penicillins 06/01/2007 Took years ago, reaction, but not sure what happened documented as of this encounter (statuses as of 11/23/2024) Medications ASPIRIN 81 MG PO CHEW one chewable by mouth daily 34 5 7 Active atorvaSTATin (LIPITOR) 10 MG Tablet Take 1 Tab by mouth daily. 90 Tab 3 7 Active metoprolol succinate XL (TOPROL XL) 50 MG TB24 Take 1 Tablet by mouth in the morning and 1 Tablet before bedtime. 8 Active rivaroxaban (XARELTO) 20 MG Tablet Take 1 Tablet by mouth daily with dinner. Active B-12 500 MCG Oral Tablet Take by mouth. Act jesus Triamcinolone Acetonide 0.1 % External Cream (Aristocort)Marjorie cations:Dermatit is Apply topically to affected area 2 times a day. To affected area. 60 g 1 3 Active Additional Information Patient not taking.Reported on 10/08/2024 levoFLOXacin 500 MG Oral Tablet (Levaquin)Indica tions:Urinary tract infection with hematuria, site unspecified Take 1 Tablet by mouth in the morning. until gone.. 10 Tablet 4 Active Sulfamethoxazole -Trimethoprim 800-160 MG Oral Tablet (Bactrim DS)Indications:U rge incontinence of urine,Urinary frequency Take 1 Tablet by mouth in the morning and 1 Tablet before bedtime. Until gone.. 20 Tablet 4 Active documented as of this encounter (statuses as of 11/23/2024) Active Problems Problem Noted Date Diagnosed Date Pure hypercholesterolemia, unspecified 3 Essential (primary) hypertension 04/14/2021 Permanent atrial fibrillation 10/06/2019 Microalbuminuria due to type 2 diabetes mellitus 04/03/2018 Dyslipidemia 04/03/2018 Type 2 diabetes mellitus wit h hemoglobin A1c goal of less than 8.0% 07/19/2014 Overview (03/01/2016): ICD-10 update of inactive term Atherosclerosis of [place] co ronary artery of [place] heart without angina pectoris 02/11/2008 S/P Tissue AORTIC VALVE REPLACEMENT 06/09/2007 RHEUMATIC HEART DIS NOS 10/01/2001 documented as of this encounter (statuses as of 11/23/2024) Resolved Problems Problem Noted Date Diagnosed Date Resolved Date Unspecified dementia, unspec ified severity, without behavioral disturbance, psychotic disturbance, mood disturbance, and anxiety 03/12/2024 10/08/2024 Unspecified dementia, unspec ified severity, without behavioral disturbance, psychotic disturbance, mood disturbance, and anxiety 03/12/2024 03/12/2024 Persistent atrial fibrillation 04/03/2019 04/14/2021 Paroxysmal atrial fibrillation 10/03/2017 04/03/2019 Diabetes type 2, uncontrolled 06/25/2013 09/20/2014 Type 2 diabetes mellitus wit h hemoglobin A1c goal of less than 7.0% 10/17/2010 09/11/2011 Overview (02/28/2016): ICD-10 update of inactive term Obesity, Class II, 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 KNEE PAIN, RIGHT, PROXIMAL-LATERAL 10/01/2001 10/03/2017 Undiagnosed cardiac murmurs 10/01/2001 09/20/2014 Dermatitis 10/01/2001 09/20/2014 documented as of this encounter (statuses as of 11/23/2024) Immunizations Name Administration Dates Next Due COVID-19 mRNA, LNP-s, No Pre serve, 2-Dose Series (Moderna) 04/11/2021,03/14/2021 documented as of this encounter Social History Tobacco Use Types Packs/Day Years Used Date Smoking Tobacco: Never Passive Smoke Exposure: Never Smokeless Tobacco: Never Alcohol Use Standard Drinks/Week Comments No 0 (1 standard drink = 0.6 oz pur e alcohol) AUDIT-C Answer Date Recorded Frequency of Alcohol Consumption Never 10/03/2018 Average Number of Drinks Not on file 018 Frequency of Binge Drinking Not on file 09/06 PHQ-2 Answer Date Recorded PHQ Adult Total Score 0 10/08/2024 Hunger Vital Sign Answer Date Recorded Within the past 12 months, y ou worried that your food would run out before you got the money to buy more. Never true 01/25/20 23 Within the past 12 months, t he food you bought just didn't last and you didn't have money to get more. Never true 01/24/2023 Sex and Gender Information Value Date Recorded Sex Assigned at Not on file Legal Sex Male 7:16 AM EST Gender Identity Male 01/24/2023 1:13 PM EDT Sexual Orientation Straight 04/14/2021 10 :27 AM EDT documented as of this encounter Miscellaneous Notes * Telephone Encounter - Elizabeth Irvin OSA - 11/23/2024 4:19 PM EST US scheduled. 11/23/2024 * Telephone Encounter - Janine Pineda OSA - 11/23/2024 12:32 PM EST Who is Requesting Test Results: Patient's Granddaughter- Tequila Zee- got verbal permission from Patient that I could speak with her. Primary Care Provider : Cecil Tai MD Tests Results Requested : Blood work- they are upset that no one has reviewed or called them with the results and they state patient is still very yellow. Date of Test : 11/13/2024 Location of Test: [facility] lab Ordering Provider: MD Cecil Tai. They are asking to be called today because his grand daughter goes back to work tomorrow and they want to speak with a nurse about the results as they are very upset that nothing was done yet. Patient has been made aware that the turnaround time for test results are typically as follows: Laboratory results = within 2-3 days ([facility]), 3-5 days (Non-[facility], ie. [facility]) Urine Cultures = within 2-3 days depending on growth within the culture Pathology results (biopsy results/PAP) = 1-2 weeks Radiology results = about 1 week Cologuard results = within 2 weeks from the shipment date COVID testing = about 24 hours * Telephone Encounter - Evon Thompson OSA - 11/17/2024 4:35 PM EST Can you please mail 2 authorization forms to the family as the children names are not on file as I did not see an update one on file. documented in this encounter Plan of Treatment Upcoming Encounters Date Type Department Care Team (Late st Contact Info) Description 11/26/2024 9:45 AM EST Imaging Radiology, [address] [place] [phone] 04/06/2025 6:20 PM EDT Office Visit [facility] [place] [address] Cecil Tai MD [address] [phone] 04/13/2025 1:20 PM EDT Office Visit [facility], [address] [phone] Cecil Tai MD [address] [place] [id number] Health Maintenance Due Date Last Done Comments Zoster Vaccines (1 of 2) 1990 Adult Wellness Visit 01/25/2024 01/24/2023 COVID-19 Vaccine ( season) 07/05/202406/2021, 03/14/2021 Depression Screening 10/08/2025 10/08/2024 documented as of this encounter Medical Devices Implanted Type Area Engineer Conductor Device Identifier Shelf Expiration Date Model / Serial / Lot Valve Ce Aortic 23mm [id number] - [id number] Implanted:Qty: 1 on 05/30/2007 [place] [facility] [place] Heart [employer] 03/04/2009 [id number] / [id number] / documented as of this encounter Care Teams Biomedical Repair Technician Relationship Specialty Start Date End Date Cecil Tai MD PCP - General Family Medicine 03/31/19 documented as of this encounter
--- OUTSIDE RECORDS SUMMARY | 2024-11-27 03:13 | External Medical Summary ---
Author Name Unknown Address Unknown Organization [id number]:LABORATORY [facility] [place] - [facility] [address] [facility] [address] Laboratory Report Ordering Provider Test Date Status KIERRA SCHULER 11/13/2024 15:40:39 Final Observation Date Value Abnormality Reference (Units ) Status WBC, Total 11/13/2024 15:40:39 6.33 4.00-10.80 (K/uL) Final RBC 11/13/2024 15:40:39 2.97 4.50-5.25 (M/uL) Final Hemoglobin 11/13/2024 15:40:39 9.1 Below low normal 14.0-16.8 (g/dL) Final HCT 11/13/2024 15:40:39 27.9 Below low normal 40.0-48.4 (%) Final MCV 11/13/2024 15:40:39 93.9 82.0-99.5 (fL) Final MCH 11/13/2024 15:40:39 30.6 27.0-34.0 (pg) Final MCHC 11/13/2024 15:40:39 32.6 32.0-36.0 (g/dL) Final RDW 11/13/2024 15:40:39 18.2 11.5-15.5 (%) Final Platelets 11/13/2024 15:40:39 312 140-400 (K/uL) Final MPV 11/13/2024 15:40:39 13.4 6.6-11.1 (fL) Final Nucleated erythrocytes/100 leukocytes [Ratio] in Blood by Automated count 11/13/2024 15:40:39 0 <=0 (/100 WBCs) Final Performing Location [facility] [address] [facility] [address] [address]
--- OUTSIDE RECORDS SUMMARY | 2024-11-27 03:13 | External Medical Summary ---
Author Name Unknown Address Unknown Organization [id number]:LABORATORY [facility] [place] - [address] [place] [id number] Laboratory Report Ordering Provider Test Date Status KIERRA SCHULER 11/13/2024 15:40:39 Final Observation Date Value Abnormality Reference (Units) Status Bacteria identified in Specimen by Culture 11/13/2024 15:40:39 No significant growth Final Test: Culture, Urine, Quanti tative
Specimen Source: Urine, Clean Catch
Specimen Type: Urine
Specimen Date: 11/13/2024 1540
Result Date: 11/14/2024 1643
Result Status: Final result
Resulting Lab: LABORATORY [facility] [place]
[address]
[facility] [address]

CULTURE

No significant growth

null Performing Location LABORATORY [facility] [place] - [address] [facility] [address]
--- OUTSIDE RECORDS SUMMARY | 2024-11-27 03:13 | External Medical Summary ---
Author Name Unknown Address Unknown Organization [id number]:LABORATORY [facility] [place] - [address] [facility] [address] Laboratory Report Ordering Provider Test Date Status GANGAEMIL KRUEGERSIL 11/13/2024 15:40:39 Final Observation Date Value Abnormality Reference (Units ) Status SYNC LEUKOCYTES IN BLOOD BY AUTOMATED COUNT 11/13/2024 15:40:39 6.33 4.00-10.80 (K/uL) Final Segs 11/13/2024 15:40:39 50.0 40.0-75.0 (%) Final Lymphs % 11/13/2024 15:40:39 26.9 18.0-42.0 (%) Final Monos 11/13/2024 15:40:39 11.4 Above high normal 1.0-11.0 (%) Final Eosinophils 11/13/2024 15:40:39 9.3 Above high normal 0.0-6.0 (%) Final Basos 11/13/2024 15:40:39 2.1 Above high normal 0.0-2.0 (%) Final Immature Granulocyte, Percent 11/13/2024 15:40:39 0.3 0.0-2.0 (%) Final Absolute Segs 11/13/2024 15:40:39 3.17 1.80-7.70 (K/uL) Final Lymphs, absolute 11/13/2024 15:40:39 1.70 1.00-4.80 (K/ul) Final Monos, Abs 11/13/2024 15:40:39 0.72 0.00-1.10 (K/uL) Final Eos, Abs 11/13/2024 15:40:39 0.59 0.00-0.70 (K/uL) Final Basos, Abs 11/13/2024 15:40:39 0.13 0.00-0.20 (K/uL) Final Immature Granulocytes, Number 11/13/2024 15:40:39 0.02 0.00-0.20 (K/uL) Final Performing Location LABORATORY [facility] - [facility] [address] [place] [address]
--- OUTSIDE RECORDS SUMMARY | 2024-11-27 03:13 | External Medical Summary | Summary of Care ---
Author Name Unknown Organization [facility] Address [address] [place] [address] Phone [phone] Care Team Providers Care Digital Librarian Name Role Phone Cecil Tai MD Primary Care Provider [phone]- [phone] Reason for Visit * Reason Comments Outpatient Testing Encounter Details Date Type Department Care Team (Late st Contact Info) Description 11/13/2024 3:50 PM EST Laboratory Laboratory, [facility] [address] [place] [phone] [facility] [address] [place] [address] Jaundice; Urinary frequency Allergies Active Allergy Reactions Criticality Noted Date Comments Iodine Rash Low 04/16/2023 Lisinopril Cough 04/03/2018 Penicillins 06/01/2007 Took years ago, reaction, but not sure what happened documented as of this encounter (statuses as of 11/13/2024) Medications ASPIRIN 81 MG PO CHEW one [...] as of this encounter (statuses as of 11/13/2024) Active Problems Problem Noted Date Diagnosed Date Pure hypercholesterolemia, unspecified 3 Essential (primary) hypertension 04/14/2021 Permanent atrial fibrillation 10/06/2019 Microalbuminuria due to type 2 diabetes mellitus 04/03/2018 Dyslipidemia 04/03/2018 Type 2 diabetes mellitus wit h hemoglobin A1c goal of less than 8.0% 07/19/2014 Overview (03/01/2016): ICD-10 update of inactive term Atherosclerosis of ione co ronary artery of ione heart without angina pectoris 02/11/2008 S/P Tissue AORTIC VALVE REPLACEMENT 06/09/2007 RHEUMATIC HEART DIS NOS 10/01/2001 documented as of this encounter (statuses as of 11/13/2024) Resolved Problems Problem Noted Date Diagnosed Date [...] 10/03/2017 Overview (04/17/2010): Per Obesity Protocol, #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 KNEE PAIN, RIGHT, PROXIMAL-LATERAL 10/01/2001 10/03/2017 Undiagnosed cardiac murmurs 10/01/2001 09/20/2014 Dermatitis 10/01/2001 09/20/2014 documented as of this encounter (statuses as of 11/13/2024) Immunizations Name Administration Dates Next Due COVID-19 [...] AM EDT documented as of this encounter Plan of Treatment Upcoming Encounters Date Type Department Care Team (Late st Contact Info) Description 04/06/2025 6:20 PM EDT [facility] [place] [facility] [address] [phone] Cecil Tai MD [address] [place] [address] 04/13/2025 1:20 PM EDT [facility] [address] [phone] Cecil Tai MD [address] [place] [address] Pending Results Name Type Priority Associated Diagnoses Date /Time COMPREHENSIVE METABOLIC PANEL Lab Routine Jaundice 11/13/2024 3:40 PM EST CBC WITH WBC DIFFERENTIAL Lab Routine Jaundice 11/13/2024 3:40 PM EST URINALYSIS, REFLEX TO MICROSCOPIC Lab Routine Urinary frequency 11/13/2024 3:40 PM EST CULTURE, URINE, QUANTITATIVE Lab Routine Urinary frequency 11/13/2024 3:40 PM EST CBC Lab Routine Jaundice 11/13/2024 3:40 PM EST DIFFERENTIAL, AUTOMATED Lab Routine Jaundice 11/13/2024 3:40 PM EST Health Maintenance Due Date Last Done Comments Zoster Vaccines (1 of 2) 1990 Adult Wellness Visit 01/25/2024 01/24/2023 COVID-19 Vaccine ( season) 07/05/202406/2021, 03/14/2021 Depression Screening 10/08/2025 10/08/2024 documented as of this encounter Medical Devices Implanted Type Area Cargo Agent Device Identifier Shelf Expiration Date Model / Serial / Lot Valve Ce Aortic 23mm 3000tfx - [id number] Implanted:Qty: 1 on 05/30/2007 at OR [facility] N/A: Heart [employer] 03/04/2009 3000TFX-23 / [id number] / documented as of this encounter Visit Diagnoses Diagnosis Jaundice Jaundice, unspecified, not of Urinary frequency documented in this encounter Care Teams Digital Librarian Relationship Specialty Start Date End Date Cecil Tai MD PCP - General Family Medicine 03/31/19 documented as of this encounter
--- OUTSIDE RECORDS SUMMARY | 2024-11-27 03:13 | External Medical Summary | Summary of Care ---
Author Name Unknown Organization [facility] Address [address] [place] [facility] [place] [address] Phone [phone] Care Team Providers Care Broadcast Operations Manager Name Role Phone Cecil Tai MD Primary Care Provider [phone]- [phone] Reason for Visit * Reason Comments Follow Up 6 month follow up. N o concerns. Encounter Details Date Type Department Care Team (Late st Contact Info) Description 10/08/2024 9:00 AM EST [facility] [address] [phone] Cecil Tai MD [address] [id number] Type 2 diabetes mellitus with hemoglobin A1c goal of less than 8.0% ([facility])*; Atherosclerosis of [place] coronary artery of [place] heart without angina pectoris; Permanent atrial fibrillation (HCC); Essential (primary) hypertension; Urge incontinence of urine; Urinary frequency Allergies Active Allergy Reactions Criticality Noted Date Comments Iodine Rash Low 04/16/2023 Lisinopril Cough 04/03/2018 Penicillins 06/01/2007 Took years ago, reaction, but not sure what happened documented as of this encounter (statuses as of 10/08/2024) Medications ASPIRIN 81 MG PO CHEW one chewable by mouth daily 34 5 06/13/20 07 Active atorvaSTATin (LIPITOR) 10 MG Tablet Take 1 Tab by mouth daily. 90 Tab 3 04/03/20 17 Active metoprolol succinate XL (TOPROL XL) 50 MG TB24 Take 1 Tablet by mouth in the morning and 1 Tablet before bedtime. 09/29/20 18 Active rivaroxaban (XARELTO) 20 MG Tablet Take 1 Tablet by mouth daily with dinner. Active B-12 500 MCG Oral Tablet Take by mouth. Act jesus Triamcinolone Acetonide 0.1 % External Cream (Aristocort)Marjorie cations:Dermatit is Apply topically to affected area 2 times a day. To affected area. 60 g 1 03/04/20 23 Active Additional Information Patient not taking.Reported on 10/08/2024 levoFLOXacin 500 MG Oral Tablet (Levaquin)Indica tions:Urinary tract infection with hematuria, site unspecified Take 1 Tablet by mouth in the morning. until gone.. 10 Tablet 06/24/20 24 Active Sulfamethoxazole -Trimethoprim 800-160 MG Oral Tablet (Bactrim DS)Indications:U rge incontinence of urine,Urinary frequency Take 1 Tablet by mouth in the morning and 1 Tablet before bedtime. Until gone.. 20 Tablet 10/08/20 24 Active Sulfamethoxazole -Trimethoprim 800-160 MG Oral Tablet (Bactrim DS)Indications:U rge incontinence of urine,Urinary frequency Take 1 Tablet by mouth in the morning and 1 Tablet before bedtime. Do all this for 10 days. Until gone.. 20 Tablet 07/27/20 24 024 Discontin ued(Refil l) documented as of this encounter (statuses as of 10/08/2024) Active Problems Problem Noted Date Diagnosed Date Pure hypercholesterolemia, unspecified 3 Essential (primary) hypertension 04/14/2021 Permanent atrial fibrillation 10/06/2019 Microalbuminuria due to type 2 diabetes mellitus 04/03/2018 Dyslipidemia 04/03/2018 Type 2 diabetes mellitus wit h hemoglobin A1c goal of less than 8.0% 07/19/2014 Overview (03/01/2016): ICD-10 update of inactive term Atherosclerosis of [place] co ronary artery of [place] heart without angina pectoris 02/11/2008 S/P Tissue AORTIC VALVE REPLACEMENT 06/09/2007 RHEUMATIC HEART DIS NOS 10/01/2001 documented as of this encounter (statuses as of 10/08/2024) Resolved Problems Problem Noted Date Diagnosed Date [...] 10/03/2017 Overview (04/17/2010): Per Obesity Protocol, #19 longterm current use of ant icoagulant therapy 06/09/2007 09/20/2014 Overview (08/05/2017): ICD-10 update of inactive term Anticoagulation management encounter 06/09/2007 09/20/2014 ADVANCE DIRECTIVE INFORMATION 05/28/2007 10/03/2017 Overview (07/01/2007): No, Advance Directive brochure given to patient at prior appointment. KNEE PAIN, RIGHT, PROXIMAL-LATERAL 10/01/2001 10/03/2017 Undiagnosed cardiac murmurs 10/01/2001 09/20/2014 Dermatitis 10/01/2001 09/20/2014 documented as of this encounter (statuses as of 10/08/2024) Immunizations Name Administration Dates Next Due COVID-19 [...] AM EDT documented as of this encounter Last Filed Vital Signs Vital Sign Reading Time Taken Comments Blood Pressure 145/80 10/08/2024 8:56 AM EST Pulse 84 10/08/2024 8:56 AM EST Temperature 35.8 C (96.5 F) 10/08/2024 8:56 AM ES T Respiratory Rate 16 10/08/2024 8:56 AM EST Oxygen Saturation - - Inhaled Oxygen Concentration - - Weight - - Height 172.7 cm (5' 8") 10/08/2024 8:56 AM EST Body Mass Index - - documented in this encounter Progress Notes * Cecil Tai MD - 10/08/2024 9:31 AM EST Subjective: Dhiraj Levy is a 84 year old male here today for Chief Complaint Patient presents with Follow Up 6 month follow up. No concerns. Presents for routine six-month return. He recently saw Cardiology for follow-up. No changes were made to his medication regimen. He has no acute complaints today. States his urinary symptoms have improved from the last visit. No fever, mental status change, flank pain, hematuria. Discussed updating labs today. He would prefer to wait till next visit. His last hemoglobin A1c was excellent. Blood pressure acceptable. He complains of his hands being "slippery." Has not been dropping things and they don't feel weak to him. Uses wheelchair for mobility No past medical history on file. Past Surgical History: Procedure Laterality Date CORONARY ENDARTERECTOMY, OPEN 05/30/07 CORONARY ENDARTERECTOMY IN CONJUNCTION WITH CABG performed by LEATHA MERRITT at OR [facility] [place] [place] REPLACEMENT AORTIC VALVE, BYPASS WITH PROSTHETIC VALVE 05/30/07 REPLACEMENT AORTIC VALVE performed by LEATHA MERRITT at OR [facility] [place] [place] Review of patient's allergies indicates: Allergen Reactions Lisinopril Cough Penicillins Took years ago, reaction, but not sure what happened Iodine Rash Current Outpatient Medications Medication Sig Dispense Refill ASPIRIN 81 MG PO CHEW one chewable by mouth daily 34 5 atorvaSTATin (LIPITOR) 10 MG Tablet Take 1 Tab by mouth daily. 90 Tab 3 metoprolol succinate XL (TOPROL XL) 50 MG TB24 Take 1 Tablet by mouth in the morning and 1 Tablet before bedtime. rivaroxaban (XARELTO) 20 MG Tablet Take 1 Tablet by mouth daily with dinner. B-12 500 MCG Oral Tablet Take by mouth. levoFLOXacin 500 MG Oral Tablet (Levaquin) Take 1 Tablet by mouth in the morning. until gone.. 10 Tablet 0 Sulfamethoxazole-Trimethoprim 800-160 MG Oral Tablet (Bactrim DS) Take 1 Tablet by mouth in the morning and 1 Tablet before bedtime. Until gone.. 20 Tablet 0 Triamcinolone Acetonide 0.1 % External Cream (Aristocort) Apply topically to affected area 2 times a day. To affected area. (Patient not taking: Reported on 10/08/2024) 60 g 1 No current facility-administered medications for this visit. Objective: BP 145/80 | Pulse 84 | Temp 96.5 F (35.8 C) (Tympanic) | Resp 16 | Ht 5' 8" (1.727 m) | BMI 30.23 kg/m | BSA 2.08 m GEN: NAD CHEST: CTA B CV: irreg but rate controlled. EXT: No c,c,e Hands - good strength. Only think I notice is some changes of arthritis and they are dry. Assessment and Plan: Type 2 diabetes mellitus with hemoglobin A1c goal of less than 8.0% ([facility]) (Primary) - HEMOGLOBIN A1C; Future; Expected date: 10/08/2024 - LIPID PANEL WITH DIRECT LDL IF TG IS HIGH; Future; Expected date: 10/08/2024 - ALBUMIN / CREATININE RATIO, URINE; Future; Expected date: 10/08/2024 - COMPREHENSIVE METABOLIC PANEL; Future; Expected date: 10/08/2024 -recheck labs with next visit. Atherosclerosis of [place] coronary artery of [place] heart without angina pectoris Permanent atrial fibrillation (HCC) - CBC; Future; Expected date: 10/08/2024 Essential (primary) hypertension -continue same treatments and cardiology follow up. Urge incontinence of urine Urinary frequency -symptoms improved after last course of ABX. Call for new or worsening symptoms. Follow Up: Return in about 6 months (around 04/08/2025) for recheck. | For: recheck 30 min with pt, chart review, documentation Cecil Tai MD documented in this encounter Nursing Notes * Verena Jacobson MED ASSIST - 10/08/2024 9:00 AM EST The patient has been properly identified by confirmation of name and date of . Chief Complaint Patient presents with Follow Up 6 month follow up. No concerns. documented in this encounter Plan of Treatment Upcoming Encounters Date Type Department Care Team (Late st Contact Info) Description 02/05/2025 2:40 PM EDT Office Visit Stephanie Khan [address] [phone] Cecil Tai MD [address] [id number] 04/13/2025 1:20 PM EDT Office Visit Stephanie Khan [address] [phone] Cecil Tai MD [address] [id number] Scheduled Orders Name Type Priority Associated Diagnoses Orde r Schedule HEMOGLOBIN A1C Lab Routine Type 2 diabetes mellitus with hemoglobin A1c goal of less than 8.0% (HCC) Expected: 10/08/2024 (Approximate), Expires: 10/08/2025 LIPID PANEL WITH DIRECT LDL IF TG IS HIGH Lab Routine Type 2 diabetes mellitus with hemoglobin A1c goal of less than 8.0% (HCC) Expected: 10/08/2024, Expires: 10/08/2025 CBC Lab Routine Permanent atrial fibrillation (HCC) Expected: 10/08/2024 (Approximate), Expires: 10/08/2025 ALBUMIN / CREATININE RATIO, URINE Lab Routine Type 2 diabetes mellitus with hemoglobin A1c goal of less than 8.0% (HCC) Expected: 10/08/2024 (Approximate), Expires: 10/08/2025 COMPREHENSIVE METABOLIC PANEL Lab Routine Type 2 diabetes mellitus with hemoglobin A1c goal of less than 8.0% (HCC) Expected: 10/08/2024 (Approximate), Expires: 10/08/2025 Health Maintenance Due Date Last Done Comments Zoster Vaccines (1 of 2) 1990 Adult Wellness Visit 01/25/2024 01/24/2023 COVID-19 Vaccine ( season) 07/05/202406/2021, 03/14/2021 Depression Screening 10/08/2025 10/08/2024 documented as of this encounter Medical Devices Implanted Type Area Resistor Tester Device Identifier Shelf Expiration Date Model / Serial / Lot Valve Ce Aortic 23mm 3000tfx - [id number] Implanted:Qty: 1 on 05/30/2007 at OR [facility] [place] [place] N/A: Heart [employer] 03/04/2009 3000TFX-23 / [id number] / documented as of this encounter Visit Diagnoses Diagnosis Type 2 diabetes mellitus with hemoglobin A1c goal of less than 8.0% (HCC)- Primary Atherosclerosis of [place] coronary artery of [place] heart without angina pectoris Permanent atrial fibrillation (HCC) Atrial fibrillation Essential (primary) hypertension Unspecified essential hypertension Urge incontinence of urine Urge incontinence Urinary frequency documented in this encounter Care Teams Broadcast Operations Manager Relationship Specialty Start Date End Date Cecil Tai MD [address] [place] [address] PCP - General Family Medicine 03/31/19 documented as of this encounter
--- OUTSIDE RECORDS SUMMARY | 2024-11-27 03:13 | External Medical Summary ---
Author Name Unknown Address Unknown Organization [id number]:[place] [facility] [place] [address] [facility] [address] Laboratory Report Ordering Provider Test Date Status EMIL SCHULERSIL 11/13/2024 15:40:39 Final Observation Date Value Abnormality Reference (Units ) Status BUN 11/13/2024 15:40:39 15 6-20 (mg/dL) Final Creatinine 11/13/2024 15:40:39 1.0 0.6-1.2 (mg/dL) Final Glomerular filtration rate/1.73 sq M.predicted [Volume Rate/Area] in Serum, Plasma or Blood by Creatinine-based formula (CKD-EPI) 11/13/2024 15:40:39 77 >=60 (mL/min) Final eGFR is calculated based on the CKD-EPI 2020 equation. Sodium 11/13/2024 15:40:39 136 135-146 (m mol/L) Final Potassium 11/13/2024 15:40:39 4.4 3.5-5.1 (m mol/L) Final Cl 11/13/2024 15:40:39 105 98-107 (mm ol/L) Final CO2 11/13/2024 15:40:39 20 Below low normal 22- 32 (mmol/L) Final Anion gap 11/13/2024 15:40:39 11 7-15 (mmol /L) Final Glucose 11/13/2024 15:40:39 123 Above high normal 70 -120 (mg/dL) Final Albumin 11/13/2024 15:40:39 3.0 Below low normal 3.8 -5.0 (g/dL) Final AST (Aspartate aminotransferase) 11/13/2024 15:40:39 273 Above high normal 10-50 (U/L) Final Alk Phos 11/13/2024 15:40:39 1105 Above high normal 35 -130 (U/L) Final Bilirubin, Total 11/13/2024 15:40:39 7.3 Above high no rmal <=1.2 (mg/dL) Final Calcium 11/13/2024 15:40:39 8.5 8.4-10.2 ( mg/dL) Final Protein 11/13/2024 15:40:39 7.5 6.0-8.3 (g /dL) Final ALT (Alanine aminotransferase) 11/13/2024 15:40:39 125 Above high normal 10-50 (U/L) Final Performing Location [place] [facility] [place] [address] [facility] [address]
--- OUTSIDE RECORDS SUMMARY | 2024-11-27 03:13 | External Medical Summary ---
Author Name Unknown Address Unknown Organization K01:LABORATORY C - [address] [facility] [address] [facility] [address] Laboratory Report Ordering Provider Test Date Status KIERRA SCHULER 11/13/2024 15:40:39 Final Observation Date Value Abnormality Reference (Units ) Status Target cells [Presence] in Blood by Light microscopy 11/13/2024 15:40:39 Moderate Abnormal None Seen Final Performing Location LABORATORY [facility] - [address] [facility] [address]
--- OUTSIDE RECORDS SUMMARY | 2024-11-27 03:13 | External Medical Summary ---
Author Name Unknown Address Unknown Organization K01:LABORATORY [facility] [place] - [address] [facility] [address] Laboratory Report Ordering Provider Test Date Status EMIL SCHULERSIL 11/13/2024 15:40:39 Final Observation Date Value Abnormality Reference (Units ) Status Color of Urine by Auto 11/13/2024 15:40:39 Dark Yellow Colorless, Light Yellow, Yellow, Dark Yellow Final Clarity, Urine 11/13/2024 15:40:39 Slightly Cloudy Abnormal Clear Final Glucose [Mass/volume] in Urine by Automated test strip 11/13/2024 15:40:39 Negative Negative (mg/dL) Final Bilirubin.total [Presence] in Urine by Automated test strip 11/13/2024 15:40:39 Moderate Abnormal Negative Final Ketones [Mass/volume] in Urine by Automated test strip 11/13/2024 15:40:39 Negative Negative (mg/dL) Final Specific gravity, Urine 11/13/2024 15:40:39 1.019 1.003-1.030 Final Hemoglobin [Presence] in Urine by Automated test strip 11/13/2024 15:40:39 Trace Abnormal Negative Final pH, Urine 11/13/2024 15:40:39 6.0 5.0-7.5 (Units) Final Protein [Mass/volume] in Urine by Automated test strip 11/13/2024 15:40:39 30 Abnormal Negative (mg/dL) Final Urobilinogen [Mass/volume] in Urine by Automated test strip 11/13/2024 15:40:39 Normal Normal (mg/dL) Final Nitrite [Presence] in Urine by Automated test strip 11/13/2024 15:40:39 Negative Negative Final Leukocyte esterase [Presence] in Urine by Automated test strip 11/13/2024 15:40:39 Trace Abnormal Negative Final RBC, Urine 11/13/2024 15:40:39 3-5 Abnormal 0-2 (/HPF) Final WBC, Urine 11/13/2024 15:40:39 10-19 Abnormal 0-2 (/HPF) Final Bacteria [#/area] in Urine sediment by Microscopy high power field 11/13/2024 15:40:39 0-25 0-25 (/HPF) Final Calcium oxalate crystals [#/area] in Urine sediment by Microscopy high power field 11/13/2024 15:40:39 5-9 Abnormal None (/HPF) Final Performing Location LABORATORY [facility] [place] - [address] [facility] [address]
--- OUTSIDE RECORDS SUMMARY | 2024-11-27 03:13 | External Medical Summary | Summary of Care ---
Author Name Unknown Organization [facility] Address [address] [place] [address] Phone [phone] Care Team Providers Care Cytopathologist Name Role Phone Cecil Tai MD Primary Care Provider [phone] Reason for Visit * Reason Onset Date Comments Test Results 11/17/2024 Encounter Details Date Type Department Care Team (Late st Contact Info) Description 11/17/2024 Telephone [facility] [address] [phone] Cecil Tai MD [address] [facility] [address] [id number] Test Results Allergies Active Allergy Reactions Criticality [...] ICD-10 update of inactive term Atherosclerosis of [place] ronary artery of [place] heart without angina pectoris 02/11/2008 S/P Tissue [...] 10/03/2017 Overview (04/17/2010): Per Obesity Protocol, #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 Call tranfer out front to schedule ultrasound. * Telephone Encounter - Nallely Nino PA-C - 11/23/2024 2:45 PM EST Urine culture was clear Liver enzymes are really high This is new compared to his lab results from 2021 We should do more lab work and an ultrasound If jaundice is worse or he is confused, er is absolutely appropriate as those numbers are very high. Nallely Nino PA-C * Telephone Encounter - Brooklyn Grant LPN - 11/23/2024 1:32 PM EST Can someone please result labs/urine so nursing can contact family/ * Telephone Encounter - OsvaldoFebruary, MOOSE - 11/23/2024 9:54 AM EST Pt's daughter Theresa called to F/U on test results. Pt is hard of hearing & do not answer the phone. Please contact pt's daughter Theresa at [phone] * Telephone Encounter - Evon Thompson OSA - 11/17/2024 4:25 PM EST Who is Requesting Test Results: Patient Daughter Elza Gustafson Primary Care Provider : Cecil Tai MD Tests Results Requested : Lab / Urine Date of Test : 11/13/2024 Location of Test: [facility] Ordering Provider: Cecil Tai MD Patient has been made aware that the [...] date COVID testing = about 24 hours documented in this encounter Plan of Treatment Upcoming Encounters Date Type Department Care Team (Late st Contact Info) Description 11/26/2024 9:45 AM EST Imaging Radiology, Stephanei Hawk [address] [phone] 04/06/2025 6:20 PM EDT [facility] [address] [phone] Cecil Tai MD [address] [id number] 04/13/2025 1:20 PM EDT [facility] [address] [phone] Cecil Tai MD [address] [id number] Scheduled Orders Name Type Priority Associated Diagnoses Orde r Schedule US ABDOMEN LIMITED Medical Imaging Routine Elevated LFTs Expected: 11/23/2024, Expires: 12/24/2025 HEPATIC FUNCTION PANEL Lab Routine Elevated LFTs Expected: 11/23/2024 (Approximate), Expires: 11/23/2025 ACUTE HEPATITIS PANEL Lab Routine Elevated LFTs Expected: 11/23/2024 (Approximate), Expires: 11/23/2025 GGTP Lab Routine Elevated LFTs Expected: 11/23/2024 (Approximate), Expires: 11/23/2025 Health Maintenance Due Date Last Done Comments Zoster Vaccines (1 of 2) 1989 Adult Wellness Visit 01/25/2024 01/24/2023 COVID-19 Vaccine ( season) 07/05/202406/2021, 03/14/2021 Depression Screening 10/08/2025 10/08/2024 documented as of this encounter Medical Devices Implanted Type Area Lamination Machine Operator Device Identifier Shelf Expiration Date Model / Serial / Lot Valve Ce Aortic 23mm [id number] - [id number] [place]planted:Q[place]: 1 on 05/30/2007 at [place] [facility] [place]: Heart [employer] 03/04/2009 [id number] / [id number] / documented as of this encounter Visit Diagnoses Diagnosis Elevated LFTs- Primary Other abnormal blood chemistry documented in this encounter Care Teams Cytopathologist Relationship Specialty Start Date End Date Cecil Tai MD PCP - General Family Medicine 03/31/19 documented as of this encounter
[2024-11-27 06:50] LABS: Adenovirus F 40/41 PCR Not Detected (NotDetected); Astrovirus PCR Not Detected (NotDetected); Campylobacter PCR Not Detected (NotDetected); Cryptosporidium PCR Not Detected (NotDetected); Cyclospora cayetanensis PCR Not Detected (NotDetected); Entamoeba histolytica PCR Not Detected (NotDetected); Enteroaggregative E.coli(EAEC) Not Detected (NotDetected); Enteropathogenic E.coli (EPEC) Not Detected (NotDetected); Enterotoxigenic E.coli (ETEC) Not Detected (NotDetected); Giardia lamblia PCR Not Detected (NotDetected); Norovirus GI/GII PCR Not Detected (NotDetected); Plesiomonas shigelloides PCR Not Detected (NotDetected); Rotavirus A PCR Not Detected (NotDetected); Salmonella PCR Not Detected (NotDetected); Sapovirus PCR Not Detected (NotDetected); Shiga-like Toxin E.coli (STEC) Not Detected (NotDetected); Shigella/Enteroinvasive E.coli Not Detected (NotDetected); Vibrio cholerae PCR Not Detected (NotDetected); Vibrio species PCR Not Detected (NotDetected); Yersinia enterocolitica PCR Not Detected (NotDetected)
[2024-11-27 08:17] LABS: Cdiff Antigen Positive; Cdiff Toxin A+B Negative Cdiff Toxin (Negative); Cdiff Toxin B Gene (2yr or >) Positive Cdiff Gene (Neg)
[2024-11-27] MEDS: D5W AND NSS 1,000 ML IV SCH (08:29)
[2024-11-27] MEDS ORDERED: METOPROLOL SUCC 50MG EXT REL TAB PO SCH (09:00)
[2024-11-27] MEDS: METOPROLOL SUCC 25MG EXT REL TAB PO SCH (09:23)
[2024-11-27] MEDS: PANTOprazole 40 MG/10 ML SYR IV SCH (09:24)
[2024-11-27 10:15] LABS: Basophils % (auto) 1.4 %; Eosinophils # (auto) 0.38 K/uL (0.00-0.50); Eosinophils % (auto) 5.5 %; Hemoglobin 8.2 g/dl (14.0-18.0); Immature Granulocytes # (auto) 0.02 K/uL (0.01-0.20); Immature Granulocytes % (auto) 0.3 %; Lymphocytes # (auto) 1.29 K/uL (1.20-3.40); Lymphocytes % (auto) 18.6 %; Mean Corpuscular Hemoglobin 30.8 pg (25.0-34.0); Mean Corpuscular Hgb Conc 35.7 g/dL (32.0-36.0); Mean Corpuscular Volume 86.5 fL (80.0-100.0); Mean Platelet Volume 11.5 fL (9.4-12.4); Monocytes # (auto) 0.72 K/uL (0.11-0.59); Monocytes % (auto) 10.4 %; Neutrophils # (auto) 4.43 K/uL (1.40-6.50); Neutrophils % (auto) 63.8 %; Platelet Count 256 K/uL (130-400); RDW Coefficient of Variation 19.5 % (11.5-14.5); Red Blood Count 2.66 M/uL (4.70-6.10); Reticulocyte % 2.56 % (0.50-2.00); White Blood Count 6.94 K/ul (4.8-10.8)
[2024-11-27 10:25] LABS: INR 1.4 (0.9-1.1); Prothrombin Time 15.1 Seconds (9.0-12.0)
[2024-11-27 10:38] LABS: Albumin Globulin Ratio 0.6 (0.9-2); Albumin Level 2.4 gm/dl (3.4-5.0); BUN Creatinine Ratio 14.9 (10-20); Bilirubin,Total 9.3 mg/dl (0.2-1.0); Creatinine Clr Calc Pharmacy 55.6 ml/min; Globulin 4.1 gm/dl (2.5-4.0); Magnesium 1.9 mg/dl (1.7-2.4); Potassium 3.7 mmol/L (3.5-5.1); Total Protein 6.5 gm/dl (6.0-8.3)
[2024-11-27 10:57] LABS: Ferritin 538.1 ng/ml (8-388)
[2024-11-27 11:07] LABS: Folate (Folic Acid),Ser orPlas 16.25 ng/ml (>5.38)
[2024-11-27 11:08] LABS: Vitamin B12 > 1500 pg/ml (180-914)
--- NOTE | 2024-11-27 13:59 | Hospitalist Progress Note ---
Date of Service November 27, 2024 Assessment & Plan (1) Hypotension: Plan Per admitting provider with addendum: Multifactorial: Hypovolemia from obstructive jaundice from cholelithiasis, possible mass lesion, UGIB secondary to hepatic coagulopathy/Xarelto Rx Rapid A-fib Acute on chronic anemia secondary to UGIB hx CAD status post coronary endarterectomy severe sp bioprosthetic AVR hyperlipidemia on statin Rx DM2 diet-controlled, well-controlled as of recent hemoglobin A1c of 6.2 last year Dementia as per records, patient mentating well PCU IVF Decrease maintenance beta-rbie dose, digoxin for uncontrolled A-fib IV PPI IV vitamin K for coagulopathy secondary to liver disease Hold Xarelto and aspirin for now given GI bleed Transfuse PRBC to maintain hemoglobin of at least 8 Hold statin given abnormal LFTs [facility] transfer once bed available (Patient kindly accepted for transfer by Dr. Santos of hospitalist service. Transfer paperwork already completed at the ER.) N.p.o. after midnight in anticipation of procedure DVT prophylaxis. SCDs re: GI bleed Full code 11/27/24- still no transfer bed, delayed, pt transitioned to clear liquid diet and will be made npo after midnight once more. AM labs ordered. Admission and Anticipated Discharge Date Admission Date: November 26, 2024 Subjective Pt was seen laying in bed Jaundiced, asking about status of his transfer states that he would like to eat otherwise denies acute concerns Review of Systems Review of Systems: All systems reviewed & are unremarkable except as noted in Subjective Physical Exam Physical Exam: General: Alert, oriented. No acute distress, jaundiced Skin: jaundiced HEENT: NC/AT CV: RRR Resp: Breath sounds clear bilaterally, no increased effort of breathing Abdomen: Soft, nontender Extremities: edema in lower extremities bilaterally. Results & Data Results & Data Vital Signs (Past 12 Hours) Vital Signs Temp Pulse Pulse Resp BP BP Pulse Ox 11/27/24 12:11 36.7 C 95 H 20 94/53 L 97 11/27/24 08:00 36.7 C 63 18 98/60 L 97 11/27/24 07:18 103 H 11/27/24 02:30 36.6 C 91 H 18 119/78 98 11/27/24 02:12 36.6 C 88 16 106/72 99 O2 Del Method 11/27/24 12:11 Room Air 11/27/24 08:00 Room Air 11/27/24 07:18 11/27/24 02:30 11/27/24 02:12 Diagnostic Findings Chest X-Ray 11/26/24 15:45 EXAM: Radiograph of the Chest 1 View INDICATION: Abdominal pain. TECHNIQUE: Frontal view of the chest. COMPARISON: No relevant prior studies available. FINDINGS: Lungs and pleural spaces: No consolidation or pulmonary edema. No pleural effusion or pneumothorax. Heart: Shape and configuration within normal limits allowing for technique. Mediastinum: Normal contour. Bones/joints: Degenerative changes noted throughout the spine and both shoulders. No lytic or blastic lesions noted. Soft tissues: No abnormality noted. No radiopaque foreign body noted. Upper abdomen: No abnormality noted. IMPRESSION: No acute cardiopulmonary disease. ACT 112: Negative or not required by law. Electronically signed by Alejandra Montesinos 11-26-2024 4:41 PM Abdomen/Pelvis CT 11/26/24 17:12 EXAM: CT Abdomen and Pelvis With Intravenous Contrast INDICATION: Jaundice. TECHNIQUE: Axial computed tomography images of the abdomen and pelvis with intravenous contrast. Sagittal and coronal reformatted images were created and reviewed. This CT exam was performed using one or more of the following dose reduction techniques: automated exposure control, adjustment of the mA and/or kV according to patient size, and/or use of iterative reconstruction technique. CONTRAST: 90ml of Optiray 320 was administered intravenously. COMPARISON: No relevant prior studies available. FINDINGS: Limitations: None. Lung bases: No abnormality noted. Pleural space: No visualized pleural effusion or pneumothorax. Heart: Mild cardiomegaly. Aortic valve prosthesis noted. Dense coronary calcification noted. No pericardial effusion. Mediastinum: No abnormality noted. ABDOMEN: Liver: Heterogeneous hypodensity with moderate intrahepatic biliary dilatation. No hepatic mass. Gallbladder and bile ducts: Small stones in the gallbladder. Contrast noted in the common hepatic duct. The common bile duct is slightly increased in density but normal size. No calcified stones. Pancreas: Homogeneous enhancement. No mass, inflammation or ductal dilation. Spleen: No significant abnormality noted. Adrenals: No significant abnormality noted. Kidneys and ureters: Simple bilateral renal cysts noted. No follow-up necessary. No stones or hydronephrosis. 3 x 6 mm stone noted at the right UPJ. No hydronephrosis. Stomach and bowel: Colonic diverticulosis without diverticulitis. No intestinal thickening or obstruction. PELVIS: Appendix: Well seen and appears normal. Bladder: There are stones in the urinary bladder the largest measuring 3.3 cm diameter. The bladder is mildly thickened and inflamed. Reproductive: No abnormalities noted. ABDOMEN and PELVIS: Intraperitoneal space: No free air. No significant fluid collection. Bones/joints: The bones are demineralized. There is acute severe compression fracture of L1 with height loss and retropulsion. Severe canal stenosis present. Diffuse degenerative changes present with grade 2 lumbosacral anterolisthesis. Soft tissues: No significant abnormality noted. Vasculature: Atherosclerotic calcification of the aorta and branches. No aneurysm. Lymph nodes: There is a heterogeneous peripherally calcified 3.5 x 3.2 x 6.0 cm long mass along the inferior margin of the atrophic left rectus muscle anterior to the left external iliac artery. IMPRESSION: 1. Common bile duct is not dilated but appears dense with cutoff at the hepatic duct level suggesting common bile duct obstruction. There is moderate intrahepatic biliary dilatation. 2. Cholelithiasis. 3. There is an irregular mass exophytic from or abutting the inferior aspect of the atrophic left rectus muscle situated anterior to the left external iliac artery. Diagnostic considerations include neoplastic mass or metastatic lymph node. Conceivably, an old rectus sheath hematoma could have this appearance. ACT 112: Negative or not required by law. Electronically signed by Alejandra Montesinos 11-26-2024 6:07 PM
[2024-11-27] MEDS ORDERED: Nursing to Pharmacy Communication SCH (16:45)
[2024-11-27] MEDS: INSULIN ASPART PER UNIT CHARGE SC SCH (18:18)
[2024-11-27] MEDS: CARBOHYDRATES FOR HYPOGLYCEMIA PO PRN (20:19)
[2024-11-27] MEDS: POTASSIUM CHLORIDE CRTAB 20 MEQ TABCR PO STA (21:25)
[2024-11-27] MEDS: DIGOXIN 250 MCG in SYRINGE 9 ML IV STA (21:34)
[2024-11-27] MEDS: D5NSS + 20MEQ KCL 20 MEQ/1,000 ML BAG IV ONE (22:34)
[2024-11-27] MEDS ORDERED: INSULIN ASPART PER UNIT CHARGE SC SCH (23:00)
[2024-11-28 06:28] LABS: Basophils # (auto) 0.12 K/uL (0.00-0.20); Basophils % (auto) 1.6 %; Eosinophils # (auto) 0.54 K/uL (0.00-0.50); Eosinophils % (auto) 7.1 %; Hematocrit (blood only) 21.5 % (42.0-52.0); Hemoglobin 7.5 g/dl (14.0-18.0); Immature Granulocytes # (auto) 0.03 K/uL (0.01-0.20); Immature Granulocytes % (auto) 0.4 %; Lymphocytes # (auto) 1.58 K/uL (1.20-3.40); Lymphocytes % (auto) 20.7 %; Mean Corpuscular Hemoglobin 30.5 pg (25.0-34.0); Mean Corpuscular Hgb Conc 34.9 g/dL (32.0-36.0); Mean Corpuscular Volume 87.4 fL (80.0-100.0); Mean Platelet Volume 11.7 fL (9.4-12.4); Monocytes # (auto) 0.81 K/uL (0.11-0.59); Monocytes % (auto) 10.6 %; Neutrophils # (auto) 4.56 K/uL (1.40-6.50); Neutrophils % (auto) 59.6 %; Platelet Count 263 K/uL (130-400); RDW Coefficient of Variation 19.9 % (11.5-14.5); RDW Standard Deviation 62.7 fL (36.4-46.3); Red Blood Count 2.46 M/uL (4.70-6.10); White Blood Count 7.64 K/ul (4.8-10.8)
[2024-11-28 06:48] LABS: Albumin Globulin Ratio 0.6 (0.9-2); Albumin Level 2.4 gm/dl (3.4-5.0); BUN Creatinine Ratio 11.1 (10-20); Bilirubin,Total 9.7 mg/dl (0.2-1.0); Calcium 7.8 mg/dl (8.6-10.3); Creatinine Clr Calc Pharmacy 58.1 ml/min; Globulin 4.2 gm/dl (2.5-4.0); Magnesium 1.9 mg/dl (1.7-2.4); Potassium 4.2 mmol/L (3.5-5.1); Total Protein 6.6 gm/dl (6.0-8.3)
[2024-11-28 06:56] LABS: Anisocytosis Present; Polychromasia 1+; Target Cells 2+
[2024-11-28] MEDS ORDERED: INSULIN ASPART PER UNIT CHARGE SC SCH (07:30)
[2024-11-28] MEDS ORDERED: Nursing to Pharmacy Communication SCH ×2 (08:45→15:00)
[2024-11-28] MEDS ORDERED: SODIUM PHOSPHATE 3 MMOL/1 ML INFUSION IV STA (08:50)
[2024-11-28] MEDS ORDERED: SODIUM CHLORIDE 0.9% 100 ML IV PRN (08:51)
[2024-11-28] MEDS ORDERED: SODIUM CHLORIDE 0.9% 50 ML IV PRN (08:51)
[2024-11-28 11:27] VITALS: RESP 18
[2024-11-28 11:43] VITALS: O2SAT 96
[2024-11-28 12:14] VITALS: TEMP 98.4
[2024-11-28] MEDS: INSULIN ASPART PER UNIT CHARGE SC SCH ×2 (12:42→17:03)
[2024-11-28] MEDS: SODIUM PHOSPHATE 15 MMOL in SODIUM CHLORIDE 0.9% 250 ML IV ONE (12:42)
[2024-11-28 13:23] LABS: Hematocrit (blood only) 25.2 % (42.0-52.0); Hemoglobin 8.7 g/dl (14.0-18.0)
--- NOTE | 2024-11-28 14:03 | Hospitalist Progress Note ---
Date of Service November 28, 2024 Assessment & Plan (1) Hypotension: Plan Per admitting provider with addendum: Multifactorial: Hypovolemia from obstructive jaundice from cholelithiasis, possible mass lesion, UGIB secondary to hepatic coagulopathy/Xarelto Rx Rapid A-fib Acute on chronic anemia secondary to UGIB hx CAD status post coronary endarterectomy severe sp bioprosthetic AVR hyperlipidemia on statin Rx DM2 diet-controlled, well-controlled as of recent hemoglobin A1c of 6.2 last year Dementia as per records, patient mentating well PCU IVF Decrease maintenance beta-brie dose, digoxin for uncontrolled A-fib IV PPI IV vitamin K for coagulopathy secondary to liver disease Hold Xarelto and aspirin for now given GI bleed Transfuse PRBC to maintain hemoglobin of at least 8 Hold statin given abnormal LFTs C transfer once bed available (Patient kindly accepted for transfer by Dr. Santos of hospitalist service. Transfer paperwork already completed at the ER.) N.p.o. after midnight in anticipation of procedure DVT prophylaxis. SCDs re: GI bleed Full code 11/27/24- still no transfer bed, delayed, pt transitioned to clear liquid diet and will be made npo after midnight once more. AM labs ordered. Admission and Anticipated Discharge Date Admission Date: November 26, 2024 Physical Exam Physical Exam: General: Alert, oriented. No acute distress, jaundiced Skin: jaundiced HEENT: NC/AT CV: RRR Resp: Breath sounds clear bilaterally, no increased effort of breathing Abdomen: Soft, nontender Extremities: edema in lower extremities bilaterally. Results & Data Results & Data Vital Signs (Past 12 Hours) Vital Signs Temp Pulse Pulse Resp BP BP Pulse Ox 11/28/24 12:13 36.9 C 108 H 18 121/68 96 11/28/24 11:32 36.8 C 92 H 18 112/66 96 11/28/24 11:26 36.9 C 110 H 18 110/68 95 11/28/24 10:32 36.6 C 112 H 20 106/71 96 11/28/24 10:18 36.6 C 116 H 20 110/68 96 11/28/24 10:02 36.6 C 108 H 20 108/68 96 11/28/24 09:47 36.6 C 106 H 20 106/66 96 11/28/24 09:29 36.8 C 92 H 18 104/66 97 11/28/24 09:05 98 H 18 112/68 11/28/24 08:15 11/28/24 07:00 36.6 C 97 H 18 99/60 L 96 11/28/24 05:48 91 H 124/73 11/28/24 02:30 36.7 C 114 H 17 157/85 H 98 O2 Del Method 11/28/24 12:13 11/28/24 11:32 11/28/24 11:26 11/28/24 10:32 11/28/24 10:18 11/28/24 10:02 11/28/24 09:47 11/28/24 09:29 11/28/24 09:05 11/28/24 08:15 Room Air 11/28/24 07:00 Room Air 11/28/24 05:48 11/28/24 02:30 Room Air Diagnostic Findings Current Inpatient Medications Acetaminophen (Acetaminophen 500 Mg Tab) 500 mg PO Q6H PRN PRN Reason: fever/pain Stop: 12/26/24 21:02 Dextrose (Dextrose 50% 50 Ml Syringe) 25 - 50 ml IV UD PRN; Protocol PRN Reason: Hypoglycemia Protocol Stop: 12/26/24 22:04 Glucagon (Glucagon For Inj 1 Mg Vial) 1 mg SQ UD PRN; Protocol PRN Reason: Hypoglycemia Protocol Stop: 12/26/24 22:04 Glucose (Glucose 40% Gel 15 Gm Tube) 15 - 30 gm PO UD PRN; Protocol PRN Reason: Hypoglycemia Protocol Stop: 12/26/24 22:04 Glucose (Glucose 10 Tab/Tube) 4 - 8 tab PO UD PRN; Protocol PRN Reason: Hypoglycemia Protocol Stop: 12/26/24 22:04 Promethazine HCl (Phenergan) 6.25 mg in 50.25 mls @ 201 mls/hr IV Q6H PRN PRN Reason: Nausea And Vomiting Stop: 12/26/24 21:04 Pantoprazole Sodium (Protonix) 40 mg in 10 mls @ 5 mls/min IV BID DONNA Stop: 12/27/24 08:59 Last Admin: 11/28/24 08:59 Dose: 5 mls/min Sodium Chloride (Nss) 100 mls @ 15 mls/hr IV .Q6H40M PRN PRN Reason: For Transfusion Duration Stop: 11/28/24 16:51 Sodium Chloride (Nss) 50 mls @ 15 mls/hr IV .Q3H20M PRN PRN Reason: For Transfusion Duration Stop: 11/28/24 16:51 Insulin Aspart (Insulin Aspart Per Unit Charge) 0 units SC ACHS DONNA Stop: 12/28/24 11:59 Metoprolol Succinate (Metoprolol Succ 25mg Ext Rel Tab) 25 mg PO BID DONNA Stop: 12/27/24 08:59 Last Admin: 11/28/24 09:00 Dose: 25 mg Miscellaneous (Carbohydrates For Hypoglycemia ) 15 - 30 gm PO UD PRN PRN Reason: Hypoglycemia Protocol Stop: 12/26/24 22:04 Last Admin: 11/27/24 20:19 Dose: 15 gm Tramadol HCl (Tramadol Hcl 50 Mg Tablet) 25 mg PO Q4H PRN PRN Reason: Pain Stop: 12/26/24 21:04
--- NOTE | 2024-11-28 15:54 | Discharge Summary ---
Discharge Summary Date of Service November 28, 2024 Principal Dx & Hospital Course #1 = Principal Diagnosis (1) Hypotension: (2) Common bile duct (CBD) obstruction: (3) Malignant obstructive jaundice: (4) Abnormal transaminases: Plan Per admitting provider with addendum: Hypovolemia from obstructive jaundice from cholelithiasis, possible mass lesion, UGIB secondary to hepatic coagulopathy/Xarelto Rx Rapid A-fib + c diff gene, 1 episode of liquid stools, will start treatment if BMs persistent Acute on chronic anemia secondary to UGIB hx CAD status post coronary endarterectomy severe sp bioprosthetic AVR hyperlipidemia on statin Rx DM2 diet-controlled, well-controlled as of recent hemoglobin A1c of 6.2 last year Dementia as per records, patient mentating well Was admitted to PCU while [place] [facility] [place] available, eventually transferred on 11/28/24 (Patient kindly accepted for transfer by Dr. Santos of hospitalist service) IVF Decrease maintenance beta-brie dose, digoxin for uncontrolled A-fib in setting of hypotension IV PPI IV vitamin K for coagulopathy secondary to liver disease Hold Xarelto and aspirin for now given GI bleed Transfuse PRBC to maintain hemoglobin of at least 8 (received 2U pRBCs with noted hgb of 8.7 on discharge) Hold statin given abnormal LFTs NPO DVT prophylaxis. SCDs re: GI bleed Full code Notes For Next Care Provider [place] [facility] Medication Changes From Visit Holding home Xarelto, aspirin in setting of GI bleed Holding home statin in setting of elevated LFTs Admission HPI Per Admitting Provider History obtained from patient and records. Medical history significant for CAD status post coronary endarterectomy, A-fib on Xarelto, severe sp bioprosthetic AVR, hypertension, hyperlipidemia, DM2 diet-controlled, chronic anemia (baseline hemoglobin of 12), dementia. Patient skin color noted to be off by family the last few weeks. Somewhat yellow to orange. No abdominal pain, no fever, no chills. Poor appetite. Denies headache, chest pain, SOB. Loose stools nonbloody as per patient. PCP requested outpatient blood work. Abnormal labs noted. Hemoglobin 9.1, ALT 125, AST 273, alk phos 11/04/2004, total bilirubin 7.3 Liver ultrasound showed Intraluminal gallbladder sludge a portion of which is suspect to be tumefactive. There is proximal intrahepatic biliary dilatation and extrahepatic biliary dilatation. Consider follow-up MRCP imaging if clinically appropriate. Patient directed to ER for evaluation. Lowest SBP of 80s documented at the ER. Patient accepted for transfer by [facility] hospitalist service pending bed availability. 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 Admission Exam Per Admitting Provider GENERAL: Comfortable, pleasant, slightly hard of hearing, no respiratory distress SKIN: Jaundiced, warm HEENT: Pale palpebral conjunctivae, no ptosis, dry buccal mucosa NECK : Supple, no tenderness CHEST : CTA, no tenderness HEART : Irregular, no obvious murmurs ABDOMEN: Some distention, nontender RECTAL : Intact sphincter, dark stool (FOBT positive) EXTREMITIES : No LE swelling/tenderness, no other conspicuous deformities noted NEUROLOGIC : Coherent, no facial asymmetry, slightly hard of hearing, no other gross focality Discharge Exam General: Alert, oriented. No acute distress, jaundiced Skin: jaundiced HEENT: NC/AT CV: RRR Resp: Breath sounds clear bilaterally, no increased effort of breathing Abdomen: Soft, nontender Extremities: edema in lower extremities bilaterally. Updated Medication List Medication Instructions Recorded Confirmed Type rivaroxaban 20 mg tablet 20 mg PO DAILY #30 tabs 07/22/19 11/26/24 History atorvastatin 10 mg tablet 10 mg PO QPM #90 tabs 07/20/24 11/26/24 Rx metoprolol succinate 50 mg 50 mg PO BID #180 tabs 08/11/24 11/26/24 Rx tablet,extended release 24 hr aspirin 81 mg tablet,delayed 81 mg PO DAILY 11/26/24 11/26/24 History release Hospital Stay Data Consultations 11/26/24 20:01 ED Decision to Admit Stat Diagnostic Imagining Performed 11/26/24 17:12 CT abd pelvis IV con only Stat Chest X-Ray 11/26/24 15:45 EXAM: Radiograph of the Chest 1 View INDICATION: Abdominal pain. TECHNIQUE: Frontal view of the chest. COMPARISON: No relevant prior studies available. FINDINGS: Lungs and pleural spaces: No consolidation or pulmonary edema. No pleural effusion or pneumothorax. Heart: Shape and configuration within normal limits allowing for technique. Mediastinum: Normal contour. Bones/joints: Degenerative changes noted throughout the spine and both shoulders. No lytic or blastic lesions noted. Soft tissues: No abnormality noted. No radiopaque foreign body noted. Upper abdomen: No abnormality noted. IMPRESSION: No acute cardiopulmonary disease. ACT 112: Negative or not required by law. Electronically signed by Alejandra Montesinos 11-26-2024 4:41 PM Abdomen/Pelvis CT 11/26/24 17:12 EXAM: CT Abdomen and Pelvis With Intravenous Contrast INDICATION: Jaundice. TECHNIQUE: Axial computed tomography images of the abdomen and pelvis with intravenous contrast. Sagittal and coronal reformatted images were created and reviewed. This CT exam was performed using one or more of the following dose reduction techniques: automated exposure control, adjustment of the mA and/or kV according to patient size, and/or use of iterative reconstruction technique. CONTRAST: 90ml of Optiray 320 was administered intravenously. COMPARISON: No relevant prior studies available. FINDINGS: Limitations: None. Lung bases: No abnormality noted. Pleural space: No visualized pleural effusion or pneumothorax. Heart: Mild cardiomegaly. Aortic valve prosthesis noted. Dense coronary calcification noted. No pericardial effusion. Mediastinum: No abnormality noted. ABDOMEN: Liver: Heterogeneous hypodensity with moderate intrahepatic biliary dilatation. No hepatic mass. Gallbladder and bile ducts: Small stones in the gallbladder. Contrast noted in the common hepatic duct. The common bile duct is slightly increased in density but normal size. No calcified stones. Pancreas: Homogeneous enhancement. No mass, inflammation or ductal dilation. Spleen: No significant abnormality noted. Adrenals: No significant abnormality noted. Kidneys and ureters: Simple bilateral renal cysts noted. No follow-up necessary. No stones or hydronephrosis. 3 x 6 mm stone noted at the right UPJ. No hydronephrosis. Stomach and bowel: Colonic diverticulosis without diverticulitis. No intestinal thickening or obstruction. PELVIS: Appendix: Well seen and appears normal. Bladder: There are stones in the urinary bladder the largest measuring 3.3 cm diameter. The bladder is mildly thickened and inflamed. Reproductive: No abnormalities noted. ABDOMEN and PELVIS: Intraperitoneal space: No free air. No significant fluid collection. Bones/joints: The bones are demineralized. There is acute severe compression fracture of L1 with height loss and retropulsion. Severe canal stenosis present. Diffuse degenerative changes present with grade 2 lumbosacral anterolisthesis. Soft tissues: No significant abnormality noted. Vasculature: Atherosclerotic calcification of the aorta and branches. No aneurysm. Lymph nodes: There is a heterogeneous peripherally calcified 3.5 x 3.2 x 6.0 cm long mass along the inferior margin of the atrophic left rectus muscle anterior to the left external iliac artery. IMPRESSION: 1. Common bile duct is not dilated but appears dense with cutoff at the hepatic duct level suggesting common bile duct obstruction. There is moderate intrahepatic biliary dilatation. 2. Cholelithiasis. 3. There is an irregular mass exophytic from or abutting the inferior aspect of the atrophic left rectus muscle situated anterior to the left external iliac artery. Diagnostic considerations include neoplastic mass or metastatic lymph node. Conceivably, an old rectus sheath hematoma could have this appearance. ACT 112: Negative or not required by law. Electronically signed by Alejandra Montesinos 11-26-2024 6:07 PM Discharge Instructions Given to Patient (Per Discharging Provider) Per admitting provider with addendum: Hypovolemia from obstructive jaundice from cholelithiasis, possible mass lesion, UGIB secondary to hepatic coagulopathy/Xarelto Rx Rapid A-fib + c diff gene, 1 episode of liquid stools, will start treatment if BMs persistent Acute on chronic anemia secondary to UGIB hx CAD status post coronary endarterectomy severe sp bioprosthetic AVR hyperlipidemia on statin Rx DM2 diet-controlled, well-controlled as of recent hemoglobin A1c of 6.2 last year Dementia as per records, patient mentating well Was admitted to PCU while awaiting [facility] transfer once bed available, eventually transferred on 11/28/24 (Patient kindly accepted for transfer by Dr. Santos of hospitalist service) IVF Decrease maintenance beta-brie dose, digoxin for uncontrolled A-fib in steting of hypotension IV PPI IV vitamin K for coagulopathy secondary to liver disease Hold Xarelto and aspirin for now given GI bleed Transfuse PRBC to maintain hemoglobin of at least 8 (received 2U pRBCs with noted hgb of 8.7 on discharge) Hold statin given abnormal LFTs NPO DVT prophylaxis. SCDs re: GI bleed Full code Total Time Total Time Spent Total Time Spent (In Minutes): 60
[2024-11-28 15:58] VITALS: BP 112/68; PULSE 98
[2024-11-28] MEDS: CALCIUM GLUCONATE 1,000 MG/60 ML BAG IV SCH (17:26)
[2024-11-28 18:09] LABS: Appearance Urine Cloudy (Clear); Bacteria Urine Automated None Seen (None Seen); Bilirubin Urine 3+ (Negative); Blood Urine 3+ (Negative); Cast Urine Automated 0-2 /lpf (0-2); Color Urine Dark Yellow; Epithelial Cell Urine Auto 0-2 /hpf (0-2); Glucose Urine UA Negative (Negative); Ketones Urine Negative (Negative); Leukocyte Esterase Urine Trace (Negative); Nitrite Urine Negative (Negative); Protein Urine Trace (Negative); Specific Gravity Urine 1.013 (1.000-1.030); Urobilinogen Urine Negative (Negative); WBC Urine Automated 0-5 /hpf (0-5); pH Urine 5.5 (4.5-7.5)
== END 2024-11-28 18:34 | disposition short-term general hospital (02) | DRG 445 ==
LOC: ED 15:31 → EDINP 21:03 → 4W 21:48